=== PATIENT | male | born 1965 | race Caucasian/White ===

== ENCOUNTER 2017-07-16 04:35 | Emergency (ER) | payer OTHER ==
[~2017-07-16] VITALS: Ht 167.6 cm; Wt 77.6 kg
[2017-07-16 04:39] VITALS: BP 122/63
--- NOTE | 2017-07-16 04:45 | NUR ---
Dr. Pratt evaluating patient at bedside.
--- NOTE | 2017-07-16 04:45 | NUR ---
PATIENT IS A 51 Y/O MALE WHO PRESENTS TO THE ED C/O HEADACHE X9 MONTHS. PT REPORTS, "I HAVE BEEN HAVING HEADACHES SINCE I RAN OUT OF MOTWIDIP." PT REPORTS 8/10 SHARP HEADACHE PAIN THAT RADIATES TO THE BODY. PT DENIES N/V/D, SOB AND CP. PT AAOX4, RR EVEN/UNLABORED, AMBULATED TO BED WITH STEADY GAIT. PT REPOSITIONED FOR COMFORT, BED IN LOWEST POSITION. ER MD DR. BAILEY NOTIFIED. WILL CONTINUE TO MONITOR.
--- NOTE | 2017-07-16 04:45 | NUR ---
PT TAKEN TO BED 8
[2017-07-16] MEDS ORDERED: KETOROLAC 60 MG/2 ML VIAL IM ONE (04:55)
[2017-07-16 05:20] VITALS: BP 127/65
== END 2017-07-16 05:20 | disposition home or self-care (01) ==
LOC: MED 04:35
DX: R51 Headache (principal); Z88.1 Allergy status to other antibiotic agents; E11.9 Type 2 diabetes mellitus without complications
CPT/HCPCS: 96372; 99283; J1885

== ENCOUNTER 2017-08-11 01:40 | Emergency (ER) | payer OTHER ==
[~2017-08-11] VITALS: Ht 175.3 cm; Wt 72.6 kg
[2017-08-11 01:48] VITALS: BP 126/74
[2017-08-11] MEDS ORDERED: KETOROLAC 60 MG/2 ML VIAL IM ONE (02:00)
[2017-08-11 02:24] VITALS: BP 126/74
== END 2017-08-11 02:24 | disposition home or self-care (01) ==
LOC: MED 01:40
DX: M25.562 Pain in left knee (principal); M25.561 Pain in right knee; R03.0 Elevated blood-pressure reading, without diagnosis of hypertension; E11.9 Type 2 diabetes mellitus without complications; Z88.1 Allergy status to other antibiotic agents; Z88.8 Allergy status to other drugs, medicaments and biological substances
CPT/HCPCS: 96372; 99283; J1885

== ENCOUNTER 2017-12-06 02:15 | Emergency (ER) | payer OTHER ==
[~2017-12-06] VITALS: Ht 175.3 cm; Wt 74.8 kg
[2017-12-06 02:26] VITALS: BP 150/56
--- NOTE | 2017-12-06 03:07 | NUR ---
PATIENT AMBULATED TO ER BED 2.
--- NOTE | 2017-12-06 03:09 | NUR ---
Pt presents to ED after falling to knees. He was seen at [facility] for medical assistance. Pt describes 05/13 and continued pain despite medical management x5 days ago. VSS. ER MD nguyen. Continue to monitor.
--- NOTE | 2017-12-06 03:27 | NUR ---
Note maxxone in EDM - 12/06/17 at 0337 by LEOBARDO Patient discharged with v/s stable. Written and verbal after care instructions given and explained to parent/guardian. Parent/Guardian verbalized understanding of instructions. Ambulatory with steady gait. All questions addressed prior to discharge. ID band removed. Parent/Guardian advised to follow up with PMD. Rx of Ofloxacin Steffanie Solution given. Parent/Guardian educated on indication of medication including possible reaction and side effects. Opportunity to ask questions provided and answered.
[2017-12-06] MEDS ORDERED: IBUPROFEN 800 MG TAB PO ONE (06:35)
[2017-12-06 06:53] VITALS: BP 150/56
== END 2017-12-06 06:53 | disposition home or self-care (01) ==
LOC: MED 02:15
DX: M25.561 Pain in right knee (principal); M25.562 Pain in left knee; Z59.0 Homelessness; E11.9 Type 2 diabetes mellitus without complications; Z88.1 Allergy status to other antibiotic agents
CPT/HCPCS: 99283

== ENCOUNTER 2018-03-11 01:00 | Emergency (ER) | payer OTHER ==
[~2018-03-11] VITALS: Ht 175.3 cm; Wt 74.8 kg
[2018-03-11 01:07] VITALS: BP 105/69
--- NOTE | 2018-03-11 01:09 | NUR ---
TO BED # 8 AMBULATORY, REPORT GIVEN TO LOLA HERNANDEZ.
--- NOTE | 2018-03-11 02:00 | NUR ---
PT C/O BL FOOT PAIN X2 WEEKS, SKIN TO AFFECTED AREA, WARM, DRY INTACT, NO REDNESS, BLEEDING, OR BRUISING NOTED. PT IS AMBULATORY , STEADY EVEN GAIT.
--- NOTE | 2018-03-11 02:01 | NUR ---
Dr. Lakhani evaluating patient
[2018-03-11] MEDS ORDERED: KETOROLAC 30 MG/ML VIAL IM ONE (02:10)
[2018-03-11 02:30] LABS: ANION GAP 10.7 (8-16); CARBON DIOXIDE 29.2 mmol/L (21-32); CREATININE 0.8 mg/dL (0.7-1.3); POTASSIUM 3.9 mmol/L (3.5-5.1)
[2018-03-11 03:28] VITALS: BP 110/60
== END 2018-03-11 03:08 | disposition home or self-care (01) ==
LOC: MED 01:00
DX: M79.1 Myalgia (principal); E11.9 Type 2 diabetes mellitus without complications; Z88.1 Allergy status to other antibiotic agents
CPT/HCPCS: 36415; 80048; 96372; 99283; J1885

== ENCOUNTER 2018-04-23 20:28 | Emergency (ER) | payer OTHER ==
[~2018-04-23] VITALS: Ht 175.3 cm; Wt 72.6 kg
[2018-04-23 20:31] VITALS: BP 155/85
--- NOTE | 2018-04-23 20:34 | NUR ---
TO LOBBY A/W BED, AMBULATORY, VSS , LONA NOTED
--- NOTE | 2018-04-23 20:59 | NUR ---
PATIENT AMBULATED TO ER BED 8
--- NOTE | 2018-04-23 21:00 | NUR ---
PATIENT PRESENTS TO ED WITH C/O BILAT LEG CELLULITIS X 1 YEAR .PT DENIES N/V/D; SKIN IS PINK/WARM/DRY; AAOX4 WITH EVEN AND STEADY GAIT; LUNGS CLEAR BL; HR EVEN AND REGULAR; PT DENIES ANY FEVER, CP, SOB, OR COUGH AT THIS TIME; PATIENT STATES PAIN OF 7/10 AT THIS TIME; VSS; PATIENT POSITIONED FOR COMFORT; HOB ELEVATED; BEDRAILS UP X2; BED DOWN. ER MD MADE AWARE OF PT STATUS.
--- NOTE | 2018-04-23 21:58 | NUR ---
Patient being evaluated by physician at bedside.
[2018-04-23] MEDS ORDERED: KETOROLAC 60 MG/2 ML VIAL IM ONE (22:10)
[2018-04-23] MEDS ORDERED: CLINDAMYCIN 600 MG/4 ML VIAL IM ONE (22:10)
--- NOTE | 2018-04-23 22:45 | NUR ---
Patient discharged with v/s stable. Written and verbal after care instructions given and explained. Patient alert, oriented and verbalized understanding of instructions. Ambulatory with steady gait. All questions addressed prior to discharge. ID band removed. Patient advised to follow up with PMD. Rx of CLEOCIN 300MG AND MOTRIN 800MG given. Patient educated on indication of medication including possible reaction and side effects. Opportunity to ask questions provided and answered.
[2018-04-23 22:46] VITALS: BP 142/79
== END 2018-04-23 22:45 | disposition home or self-care (01) ==
LOC: MED 20:28
DX: L03.116 Cellulitis of left lower limb (principal); E11.9 Type 2 diabetes mellitus without complications; Z88.1 Allergy status to other antibiotic agents
CPT/HCPCS: 96372; 99284; J1885; J3490

== ENCOUNTER 2018-05-04 21:35 | Inpatient (IN) | payer OTHER ==
[~2018-05-04] VITALS: Ht 177.8 cm; Wt 84.8 kg
--- NOTE | 2018-05-04 21:35 | NUR ---
PATIENT PRESENTS TO ED BIBA D/T LEG PAIN AND NASAL CONGESTION. EMS STATES WHILE EN ROUTE PATIENT STOPPED RESPONDING AND GASPING FOR AIR WHILE FLAILING AND ACTING RESTLESS. PATIENT IS DIAPHORETIC AT THIS TIME, NON PITTING EDEMA IN LOWER EXTREMITIES, ABDOMINAL DISTENTION NOTED, PATIENT PURPLE IN COLOR AT THIS TIME, EMS BAGGING AT BEDSIDE RT NOTIFIED, PATIENT IS NON RESPONSIVE, AT THIS TIME GCS 7. PATIENT HAS BLUE-PURPLE DISCOLORATION ON COLLAR BONE. ER MD BAILEY AT BEDSIDE AT THIS TIME. PATIENT PLACED ON BEDSIDE MONITOR AT THIS TIME. SAFETY MEASURES ENSURED. WILL CONTINUE TO MONITOR PATIENT.
--- NOTE | 2018-05-04 21:45 | NUR ---
PATIENT PLACED ON BIPAP AT THIS TIME
[2018-05-04] MEDS ORDERED: NACL 0.9% 1,000 ML IV SCH (21:46)
[2018-05-04 21:50] VITALS: BP 165/135
[2018-05-04] MEDS ORDERED: LEVOFLOXACIN 750 MG/D5W PREMIX 150 ML IV ONE (21:50)
[2018-05-04] MEDS ORDERED: LORazepam 2 MG/ML VIAL IVP ONE ×2 (21:50→23:35)
[2018-05-04 22:00] LABS: BASOPHILS # (AUTO) 0.1 K/uL (0.00-0.22); BASOPHILS % (AUTO) 0.4 % (0.0-2.0); HEMATOCRIT 38.1 % (36-52); HEMOGLOBIN 12.1 g/dL (12.0-18.0); LYMPHOCYTES # (AUTO) 7.9 K/uL (2.0-11.5); LYMPHOCYTES % (AUTO) 33.6 % (20.5-51.1); MEAN CORPUSCULAR HEMOGLOBIN 32 pg (27-31); MEAN CORPUSCULAR HGB CONC 32 g/dL (33-37); MONOCYTES # (AUTO) 3.2 K/uL (0.8-1.0); MONOCYTES % (AUTO) 13.8 % (1.7-9.3); NEUTROPHILS # (AUTO) 12.2 K/uL (1.8-7.7); NEUTROPHILS % (AUTO) 52.2 % (42.2-75.2); RED BLOOD CELL COUNT(AUTO) 3.85 MIL/uL (4.20-6.10); RED CELL DISTRIBUTION WIDTH 13.4 % (11.6-13.7)
--- NOTE | 2018-05-04 22:01 | NUR ---
BP 226/118, HR 123, O2 70 BIPAP, RR 24 ER MD AT BEDSIDE, RT AT BEDSIDE, CHARGE NURSE AT BEDSIDE AT THIS TIME
[2018-05-04] MEDS ORDERED: methylPREDNISolone SS 125 MG/2 ML VIAL ONE (22:02)
[2018-05-04] MEDS ORDERED: diphenhydrAMINE 50 MG/ML VIAL ONE (22:02)
--- NOTE | 2018-05-04 22:03 | NUR ---
XRAY AT BEDSIDE
--- NOTE | 2018-05-04 22:10 | NUR ---
PATIENT IS RESPONSIVE AT THIS TIME, PATIENT IS A&OX4, PATIENT IS ALERT AND APPROPRIATE AT THIS TIME FOLLOWING COMMANDS; PERRLA; ER MD GONZALO PASCAL WILL CONTINUE TO MONITOR.
[2018-05-04] MEDS ORDERED: ETOMIDATE 20 MG/10 ML VIAL IVP ONE ×2 (22:20→23:15)
[2018-05-04] MEDS ORDERED: SUCCINYLCHOLINE CHLORIDE 200 MG/10 ML VIAL IVP ONE ×2 (22:21→23:15)
[2018-05-04 22:31] LABS: PROTHROMBIN TIME 11.5 secs (10.8-13.4)
[2018-05-04 22:34] LABS: ANION GAP 20.6 (8-16); CARBON DIOXIDE 21.6 mmol/L (21-32); POTASSIUM 5.2 mmol/L (3.5-5.1)
[2018-05-04 22:35] LABS: CREATININE 1.2 mg/dL (0.7-1.3)
[2018-05-04 22:36] LABS: ALBUMIN 2.6 g/dL (3.4-5.0); TOTAL BILIRUBIN 0.3 mg/dL (0.0-1.0)
[2018-05-04 22:44] LABS: PLATELET COUNT (AUTO) 606 K/uL (140-450); WHITE BLOOD COUNT (AUTO) 23.4 K/uL (4.8-10.8)
--- NOTE | 2018-05-04 22:49 | NUR ---
Note undone in EDM - 05/04/18 at 2250 by KURTIS PATIENT PRESENTS TO ED BIBA D/T LEG PAIN AND NASAL CONGESTION. EMS STATES WHILE EN ROUTE PATIENT STOPPED RESPONDING AND GASPING FOR AIR WHILE FLAILING AND ACTING RESTLESS. PATIENT IS DIAPHORETIC AT THIS TIME, NON PITTING EDEMA IN LOWER EXTREMITIES, ABDOMINAL DISTENTION NOTED, PATIENT PURPLE IN COLOR AT THIS TIME, EMS BAGGING AT BEDSIDE RT NOTIFIED, PATIENT IS NON RESPONSIVE, AT THIS TIME GCS 7. PATIENT HAS BLUE-PURPLE DISCOLORATION ON COLLAR BONE. ER MD BAILEY AT BEDSIDE AT THIS TIME. PATIENT PLACED ON BEDSIDE MONITOR AT THIS TIME. SAFETY MEASURES ENSURED. WILL CONTINUE TO MONITOR PATIENT.
--- NOTE | 2018-05-04 22:55 | NUR ---
RT CALLED; PATIENT O2 SAT DIPS INTO 70% ON BI PAP; DR BAILEY NOTIFIED
[2018-05-04 22:57] LABS: APPEARANCE,URINE CLEAR (CLEAR); BILIRUBIN,URINE NEGATIVE (NEGATIVE); BLOOD, URINE 2+ (NEGATIVE); COLOR,URINE YELLOW (YELLOW); LEUKOCYTE ESTERASE ,URINE NEGATIVE (NEGATIVE); NITRITE, URINE NEGATIVE (NEGATIVE); PH,URINE 7.5 (5.0-9.0); UGLUCOSE NEGATIVE (NEGATIVE)
--- NOTE | 2018-05-04 23:10 | NUR ---
AND KATHLEEN AT BEDSIDE WITH PATIENT. INTUBATED BY DR. BAILEY WITH 8.0 ETT AT 24CM AT LIP. BS-BILATERAL, ETCO2 WAS POSITIVE FOR GAS EXCHANGE,UNABLE TO GET SAO2 AT THIS TIME. X-RAY WAS ORDER SUCTIONED LARGE AMOUNTS OF FROTHY SECRETIONS
--- NOTE | 2018-05-04 23:10 | NUR ---
PATIENT INTUBATED BY DR. BAILEY. PATIENT TOLERATED WELL. PATIENT RESTING AT THIS TIME. ETOMIDATE 20MG GIVEN, SUCCINYLCHOLINE 100MG GIVEN. RT RT RENAN GRAHAM, CHARGE NURSE DR LYNN BARNETT AT BEDSIDE AT THIS TIME
[2018-05-04 23:19] LABS: RBC,URINE 11-20 (MOD) /HPF (0-5); WBC,URINE 0-5 (RARE) /HPF (0-5)
[2018-05-04 23:20] VITALS: BP 179/92
--- NOTE | 2018-05-04 23:28 | NUR ---
VILLEGAS CATHETER IN PLACE PT TOLERATED WELL
[2018-05-05] VITALS (80 sets, daily range): BP systolic 87–163; BP diastolic 47–85
[2018-05-05] MEDS ORDERED: ATROPINE 1 MG/10 ML SYR IVP ONE (00:11)
--- NOTE | 2018-05-05 00:15 | NUR ---
WENT WITH PT TO CT , PLACED PT ON THE VENT, NO INCIDENTS NOTED, COME BACK WITH THE PT AT 0056 , PLACED BACK AGAIN TO THE VENT.VENT CK DONE, NO DISTRESS NOTED, TALK WITH DR BAILEY AND INCREASED PEEP TO 10 AND I CAN SEE THE IMPROVMENT, FROM SAT 49%, NOW SAT IS 72%. CONTINUE TO MONITOR PT.
--- NOTE | 2018-05-05 01:00 | NUR ---
PATIENT BACK FROM CT
[2018-05-05] MEDS ORDERED: PROPOFOL 1000 MG/100 ML PREMIX 100 ML IV ONE ×3 (01:05→07:09)
[2018-05-05] MEDS ORDERED: LORazepam 2 MG/ML VIAL IVP ONE (01:05)
[2018-05-05] MEDS ORDERED: LORazepam 50 MG in NACL 0.9% 25 ML IV PRN (01:05)
[2018-05-05] MEDS ORDERED: PROPOFOL 200 MG/20 ML VIAL IV ONE (01:10)
[2018-05-05] MEDS ORDERED: FUROSEMIDE 100 MG/10 ML VIAL IVP ONE (01:10)
--- NOTE | 2018-05-05 01:34 | NUR ---
PATIENT PLACED ON PROPOFOL DRIP PER MD. PATIENT TRYING TO PULL OUT INTUBATION AT THIS TIME.
--- NOTE | 2018-05-05 02:14 | NUR ---
PATIENT RESTLESS AT THIS TIME PROPOFOL INCREASED 15MCG/KG/MIN.
--- NOTE | 2018-05-05 02:20 | NUR ---
PER MITCH FROM ADMITTING, ALFONZO FROM [employer] STATED THAT PATIENT WOULD BE ABLE TO BE ADMITTED TO [facility]
--- NOTE | 2018-05-05 02:37 | NUR ---
CHANDLER ADAIR CALLED AT THIS TIME. SPOKE TO DR DAVON FLORES TO CALL BACK
--- NOTE | 2018-05-05 03:37 | NUR ---
SPOKE TO SANDRA FROM [facility] REQUESTING ANOTHER PAGE TO THE DR HEALTH AND PHYSICAL EDUCATION PROFESSOR. AWAITING CALL BACK FROM AT THIS TIME.
--- NOTE | 2018-05-05 04:39 | NUR ---
CALLED [facility] AFTER HOURS TO PAGE DR. MAYS. WAITING FOR CALL BACK AT THIS TIME
--- NOTE | 2018-05-05 05:16 | NUR ---
Wes donahue in ED - 05/05/18 at 0520 by MEDSV SPOKE TO LAUREL FROM [facility]; NO PLACEMENT AVAILABLE AT THIS TIME. MADE AWARE
--- NOTE | 2018-05-05 05:17 | NUR ---
Wes donahue in ED - 05/05/[address] BAILEY REQUESTING PT TO BE ADMISSION TO THE HOSPITAL AT THIS TIME. PER MITCH FROM ADMITTING, PT TO BE ADMITTED TO [facility] NEEDLE LOOM TENDER.
--- NOTE | 2018-05-05 05:39 | NUR ---
PT TO BE ADMITTED UNDER DR BERNARDO
[2018-05-05] MEDS ORDERED: VANCOMYCIN PER PHARMACY MC PRN (05:45)
[2018-05-05] MEDS ORDERED: DOCUSATE SODIUM 250 MG GELCAP PO PRN (05:50)
[2018-05-05] MEDS ORDERED: ZOLPIDEM 5 MG TAB PO PRN (05:50)
[2018-05-05] MEDS ORDERED: LORazepam 2 MG/ML VIAL IVP PRN (05:50)
[2018-05-05] MEDS ORDERED: MORPHINE SULFATE 2 MG/ML SYR IVP PRN (05:50)
[2018-05-05] MEDS ORDERED: POTASSIUM CHLORIDE 10 MEQ TABER PO PRN (05:50)
[2018-05-05] MEDS ORDERED: guaiFENesin DM 200/20 MG-10 ML 10 ML UDC PO PRN (05:50)
[2018-05-05] MEDS ORDERED: DEXTROSE 50% 50 ML SYR IVP PRN (05:50)
[2018-05-05] MEDS ORDERED: ONDANSETRON 4 MG/2 ML VIAL IVP PRN (05:50)
[2018-05-05] MEDS ORDERED: diphenhydrAMINE 50 MG/ML VIAL IVP PRN (05:50)
[2018-05-05] MEDS ORDERED: ALUMINUM HYD/MAG/SIMETHICONE 30 ML UDC PO PRN (05:50)
[2018-05-05] MEDS ORDERED: ACETAMINOPHEN 650 MG SUPP RC PRN (05:50)
[2018-05-05] MEDS ORDERED: MAGNESIUM OXIDE 400 MG TAB PO PRN (05:50)
[2018-05-05] MEDS ORDERED: SODIUM PHOSPHATE 118 ML ENEM RC PRN (05:50)
[2018-05-05] MEDS ORDERED: MAG SULF 2000 MG/WATER PREMIX 50 ML IV PRN (05:50)
[2018-05-05] MEDS ORDERED: HYDROcodone/APAP 5/325 MG 1 TAB TAB PO PRN ×2 (05:50)
[2018-05-05] MEDS ORDERED: BISACODYL 10 MG SUPP RC PRN (05:50)
--- NOTE | 2018-05-05 05:50 | NUR ---
PATIENT TRANSFERRED FROM ER TO ICU BED 5, VIA 100% AMBU AND PLACED BACK ON CURRENT VENTILATOR SETTING AC-20, VT-600ML, FIO2-100% PEEP+10, SAO2-98% RR-39BPM CHANGED CRYSTAL AND ELBA.
[2018-05-05] MEDS ORDERED: PIPERACILLIN/TAZOBACTAM 3.375 GM in DEXTROSE 5% 50 ML IV SCH (06:00)
--- NOTE | 2018-05-05 06:00 | NUR ---
Pt report given to YUDI HERNANDEZ AND MAYANK HERNANDEZ. Transfer of care at this time.
--- NOTE | 2018-05-05 06:00 | NUR ---
RECEIVED PT FROM ED NURSE TRANSPORT, RT @ BEDSIDE.
--- NOTE | 2018-05-05 06:05 | NUR ---
PT ASLEEP, EYES CLOSED, ABLE TO FOLLOW SIMPLE COMMANDS. MOVING UPPER AND LOWER EXTREMITIES. PT INTUBATED 8.0 ETT TO VENT 24 CM @ LIP. VENT SETTINGS 600 TV, R 20 PEEP 10 100% FIO2. RHONCHI THROUGHOUT. YELLOW THICK SECRETIONS SUCTIONED OUT. PT TACHYPNEIC 30-40S RR. S1 S2 SINUS TACH 100S NOTED. + 3 PITTING EDEMA TO BLE. ABD SOFT NON DISTENDED. HYPOACTIVE BOWEL SOUNDS. VILLEGAS CATH CLEAR YELLOW URINE. SKIN NON INTACT; L WOUND TO CALF, BLANCHABLE REDNESS TO BUTTOCKS AREA. IV TO L AC 20G AND R AC 22 G. WILL CONTINUE TO OBSERVE.
--- NOTE | 2018-05-05 06:25 | NUR ---
PT CONTINUES TO BE TACHYPNEIC RR 40S; PROPOFOL INCREASED FROM 25 MCG TO 30 MCG AND IS STILL RESTLESS, NOW PROPOFOL IS @ 35 MCG/KG/MIN. PT HAS RASS -2 WILL CONTINUE TO OBSERVE.
[2018-05-05] MEDS: BLOOD GLUCOSE MONITORING 1 DEV DEV FS SCH ×4 (06:26→20:00)
[2018-05-05] MEDS ORDERED: PIPERACILLIN/TAZOBACTAM 3.375 GM VIAL IV ONE (06:35)
[2018-05-05] MEDS: NACL 0.9% 1,000 ML IV SCH ×2 (06:47→21:28)
[2018-05-05] MEDS ORDERED: PROPOFOL 1000 MG/100 ML PREMIX 100 ML IV PRN (06:50)
--- NOTE | 2018-05-05 06:55 | NUR ---
SPOKE WITH DR BARTHOLOMEW FOR ORDERS. WILL CONTINUE TO OBSERVE
--- NOTE | 2018-05-05 07:13 | NUR ---
RCV'D PT ON MECHANICAL VENTILATION INTUBATED WITH 8.0 ETT AT 24 CM. VENT IS CONNECTED TO RED OUTLET. ALARMS AUDIBLE. AMBU BAG AT BEDSIDE. PT IS ASLEEP COMFORTABLY. NO SOB OR DISTRESS NOTED. CLEAR BREATH SOUNDS. DECREASED FIO2 TO 80%. WILL CONTINUE TO MONITOR.
--- NOTE | 2018-05-05 07:20 | NUR ---
REPORT RECEIVED FROM NIGHT NURSEYUDI. PT SEDATED ON 35 MCG OF PROPOFOL. NO EYE OPENING BUT GRIMACING TO PAINFUL STIMULI. PT SKIN WARM AND DRY. MILD EDEMA NOTED IN BUE, PITTING EDEMA IN BLE. LUNG SOUNDS CLEAR ON LEFT SIDE, SLIGHTLY DIMINISHED ON RIGHT SIDE. S1S2 HEARD. ACTIVE BOWEL SOUNDS. WOUND ON MEDIAL LOWER LEFT CALF OPEN SKIN PURULENT DRAINAGE, COVERED. SMALL WOUND ON LATERAL LOWER LEFT LEG OPEN MINIMAL CLEAR DRAINAGE COVERED. IVS IN LAC/RAC FLUSHED BOTH PATENT AND ASYMPTOMATIC. WILL CONTINUE TO MONITOR PATIENT. Addendum: 05/05/18 at 825 by Jewels Mc RN ETT TO VENT; SIZE 8; 24 AT TEETH VENT SETTINGS: FiO2 80% PEEP 10 RATE 20 TV 600 Addendum: 05/05/18 at 826 by Jewels Mc RN VILLEGAS CATH IN PLACE. PLACE 05/04/18 IN ED
--- NOTE | 2018-05-05 07:26 | NUR ---
REPORT GIVEN TO AM NURSE FOR CONTINUITY OF CARE
[2018-05-05] MEDS: PROPOFOL 1000 MG/100 ML PREMIX 100 ML IV PRN ×4 (07:29→21:59)
--- NOTE | 2018-05-05 08:09 | NUR ---
ABG DONE WITH NO INCIDENT.
--- NOTE | 2018-05-05 08:42 | NUR ---
Paged and received call back from Dr. Palencia. Ordered CBC, CMP, LACTIC ACID STAT. NG tube placement, KUB and Dietary consult. Will follow up on order.
[2018-05-05] MEDS: PANTOPRAZOLE 40 MG INJ VIAL IVP SCH (09:00)
[2018-05-05] MEDS ORDERED: VANCOMYCIN 1GM/DEXT 5% PREMIX 200 ML IV SCH (09:00)
[2018-05-05] MEDS ORDERED: VANCOMYCIN HCL 1,500 MG in DEXTROSE 5% 250 ML IV SCH (09:00)
--- NOTE | 2018-05-05 09:20 | NUR ---
NG TUBE PLACED. NO COMPLICATIONS PT TOLERATED WELL. WILL CONTINUE TO MONITOR. XRAY CALLED TO VERIFY PLACEMENT
--- NOTE | 2018-05-05 09:36 | NUR ---
Pt. noted with elevated body temperature 101.2. Removed extra clothes. Pt. on continuous cold sponging. Waiting for ng tube placement verification by x-ray to administer medication. Dr. Palencia made aware about elevated body temperature.
--- NOTE | 2018-05-05 09:43 | NUR ---
CALLED PTS FATHER ABIODUN JACOBSEN, AT [phone], AND LEFT A MESSAGE WITH HIM EXPLAINING THAT HIS SON WAS HERE IN THE ICU. LEFT A CALL BACK NUMBER. WILL WAIT TO HEAR BACK.
[2018-05-05 10:00] LABS: BASOPHILS # (AUTO) 0.1 K/uL (0.00-0.22); BASOPHILS % (AUTO) 0.5 % (0.0-2.0); HEMATOCRIT 35.3 % (36-52); HEMOGLOBIN 11.7 g/dL (12.0-18.0); LYMPHOCYTES % (AUTO) 9.5 % (20.5-51.1); MEAN CORPUSCULAR HEMOGLOBIN 31 pg (27-31); MEAN CORPUSCULAR HGB CONC 33 g/dL (33-37); MEAN CORPUSCULAR VOLUME 94.2 fL (80-94); MONOCYTES # (AUTO) 0.5 K/uL (0.8-1.0); NEUTROPHILS # (AUTO) 9.1 K/uL (1.8-7.7); PLATELET COUNT (AUTO) 500 K/uL (140-450); RED BLOOD CELL COUNT(AUTO) 3.75 MIL/uL (4.20-6.10); RED CELL DISTRIBUTION WIDTH 13.2 % (11.6-13.7); WHITE BLOOD COUNT (AUTO) 10.8 K/uL (4.8-10.8)
--- NOTE | 2018-05-05 10:00 | NUR ---
PT HAS A FEVER OF 101.2. WILL GIVE TYLENOL 650MG ORDERED. WILL REASSESS IN 30 MINUTES
--- NOTE | 2018-05-05 10:08 | NUR ---
PT SPO2 DROPPED TO 80. CALLED RESPIRATORY. DELIVERED 100% FI02 FOR TWO MINUTES. STATS STILL IN LOW 80S PAGED RESPIRATORY AGAIN THEY SAID THEY WOULD COME. CHANGED PULSE OX TO EAR LOBE. SPO2 UP TO 93. Addendum: 05/05/18 at 1010 by Jewels Mc RN WILL CONTINUE TO MONITOR
--- NOTE | 2018-05-05 10:09 | NUR ---
DECERASED VT PER DR SALOMON'S ORDER TO 400. DECREASED FIO2 TO 60%. WILL CONTINUE TO MONITOR.
--- NOTE | 2018-05-05 10:23 | NUR ---
PATIENT HAS BEEN SCREENED AND CATEGORIZED HIGH NUTRITION RISK. PATIENT WILL BE SEEN WITHIN 1-2 DAYS OF ADMISSION. 05/05/18 05/06/[address]
[2018-05-05] MEDS: ACETAMINOPHEN 325 MG TAB PO PRN (10:27)
[2018-05-05 10:32] LABS: ANION GAP 13.2 (8-16); CARBON DIOXIDE 25.7 mmol/L (21-32); CREATININE 1.5 mg/dL (0.7-1.3)
[2018-05-05 10:42] LABS: POTASSIUM 6.9 mmol/L (3.5-5.1)
--- NOTE | 2018-05-05 10:45 | NUR ---
FATHER MADE AWARE ABOUT ADMITTING PAPER NEEDS TO BE SIGN. WHENEVER HE IS ABLE TO COME. FATHER SAID HE UNDERSTOOD.
--- NOTE | 2018-05-05 10:45 | NUR ---
CALLED PATIENT'S FATHER ABIODUN JACOBSEN AT [phone], DIVEHI SPEAKING ONLY. RESISTANCE MACHINE WELDER SETTER MAXINE #[id number] TRANSLATED. PATIENT'S FATHER CLAIMED THAT HE HAS NOT SEEN THE PATIENT FOR 5 MOS. HE ALSO STATED THAT IF IT IS REALLY NEEDED, WE HAVE TO DO WHAT WE GOT TO DO. ALL QUESTIONS ANSWERED. CONSENT SIGNED AND PLACED IN THE CHART.
--- NOTE | 2018-05-05 11:07 | NUR ---
PT FEVER DOWN TO 99.7 UPON REEVALUATION. WILL CONTINUE TO MONITOR.
--- NOTE | 2018-05-05 11:11 | NUR ---
INCREASED VT TO 500 PER MALACHI SIRRI ORDER. FIO2 AT 60% SPO2 94%. WILL CONTINUE TO MONITOR.
--- NOTE | 2018-05-05 11:16 | NUR ---
US TECH AT BEDSIDE.
--- NOTE | 2018-05-05 11:30 | NUR ---
SPOKE WITH DR PLATT REGARDING POTASSIUM 6.9, ORDERS RECEIVED: 1AMP BICARB IVP, CALCIUM CHLORIDE 1GM IVP, KAYEXALATE 30GM NG, D50 1 AMP IVP, INSULIN 10 UNITS IVP. WILL CARRY OUT ORDERS.
[2018-05-05] MEDS ORDERED: INSULIN REGULAR, HUMAN 100 UNIT/ML VIAL IVP SCH (11:50)
[2018-05-05] MEDS ORDERED: DEXTROSE 50% 50 ML SYR IVP SCH (11:50)
[2018-05-05] MEDS ORDERED: SODIUM POLYSTYRENE 15 GM/60 ML UDBTL PO SCH (12:01)
[2018-05-05] MEDS ORDERED: SODIUM BICARBONATE 8.4% PFS 50 MEQ/50 ML SYR IVP SCH (12:06)
[2018-05-05] MEDS ORDERED: CALCIUM CHLORIDE 10% 100 MG/ML SYR IVP SCH (12:06)
[2018-05-05] MEDS: PIPER/TAZO 3.375GM/D5W PREMIX 50 ML IV SCH ×3 (12:22→23:00)
--- NOTE | 2018-05-05 12:50 | NUR ---
ADMINISTERED MEDICATION ORDERED. TOLERATING WELL. WILL CONTINUE TO MONITOR.
--- NOTE | 2018-05-05 13:30 | NUR ---
DR. ESCOBEDO AT BEDSIDE, SEEN AND EXAMINED PATIENT. WILL FOLLOW UP WITH ORDERS.
[2018-05-05] MEDS ORDERED: ALBUMIN HUMAN 25% 100 ML IV SCH (14:00)
[2018-05-05] MEDS ORDERED: SKINTEGRITY HYDROGEL TP PRN (14:15)
--- NOTE | 2018-05-05 14:45 | NUR ---
THORACENTESIS PERFORMED BY DR. SANCHEZ, ASSISTED NEEDED. 12.5 LTR FLUID TAKEN OUT. PT TOLERATING WELL. NO CHANGE IN CONDITION. SAMPLE TAKEN TO THE LAB.
--- NOTE | 2018-05-05 14:57 | NUR ---
CALL PLACED TO [facility] AND SPOKE WITH ALFONZO CEJA AND PROVIDED VERBAL UPDATE ON PATIENTS CONDITION AND WILL FAX OVER CLINICAL REVIEW. FAX [phone] AND PHONE [phone] EXT [phone]
--- NOTE | 2018-05-05 15:00 | NUR ---
TEMPERATURE DECREASED TO 98.8.
--- NOTE | 2018-05-05 15:30 | NUR ---
DECREASED FIO2 TO 40% SPO2 96%. WILL CONTINUE TO MONITOR.
--- NOTE | 2018-05-05 15:30 | NUR ---
Global Safety Officer Note: Patient is currently intubated. I called and spoke with patient's father Puneet Arreguin , Puneet speaks Singaporean. Per Puneet, he has not had any contact with patient within last 5 months. He stated he does not know where patient has residing at or anything about him. Patient was living with Puneet about 1 year ago, lived with him for 5 years. Puneet reported patient would lie to him just about everything, he would leave the house and come back on and off. He stated patient has either schizophrenia or bipolar. He reported when patient use to live with him patient would not take his psychiatric medication. He informed me patient receives SSDI and use to see a psychiatrist in [place], [place], he does not recall name of psychiatrist, stated psychiatrist's office is located between [facility] and [facility]. He reported patient has been at multiple hospitals, including [facility] and [facility].
--- NOTE | 2018-05-05 15:36 | NUR ---
DR. ESCOBEDO CALLED BACK AND MADE AWARE OF POTASSIUM LEVEL OF 5.2. CONTINUE CURRENT TREATMENT AND NO DIALYSIS FOR NOW PER DR. ESCOBEDO.
--- NOTE | 2018-05-05 15:41 | NUR ---
DR PLATT PAGED REGARDING RD'S RECOMMENDATION. AWAITING FOR CALL BACK.
--- NOTE | 2018-05-05 15:45 | NUR ---
RESTING IN BED COMFORTABLY. TEMP 98 DEGREE F. CONTINUE ON PROPOFOL DRIP. RASS -3. NO CHANGES IN CONDITION. CONTINUE ON BEDSIDE MONITORING.
[2018-05-05] MEDS: SKINTEGRITY HYDROGEL TP SCH (15:51)
--- NOTE | 2018-05-05 16:01 | NUR ---
Clinical review faxed to [facility]. [phone]
--- NOTE | 2018-05-05 16:01 | NUR ---
05/05/18 RD INITIAL ASSESSMENT COMPLETED PLEASE REFER TO NUTRITION ASSESSMENT UNDER CARE ACTIVITY FOR ESTIMATED NUTRITIONAL NEEDS. 1. RECOMMEND TF VITAL AF 1.2 @ GOAL RATE 70ML/H WITH 170 ML H2O FLUSH Q4H TOLERATED -NUTRITION SUPPORT PROVIDES 2016 KCAL (98% ESTIMATED KCAL NEEDS), 126GM PRO (100% ESTIMATED PROTEIN NEEDS), AND 2042 ML FLUID 2. RECOMMEND 1 PKT ANGIE QD FOR WOUND HEALING 3. FOLLOW-UP DIABETES NUTRITION EDUCATION WHEN APPROPRIATE 4. RD TO FOLLOW-UP 2-3 DAYS, HIGH RISK RABIA GIBSON RD
[2018-05-05 16:37] LABS: ANION GAP 13.4 (8-16); CREATININE 1.7 mg/dL (0.7-1.3); POTASSIUM 5.4 mmol/L (3.5-5.1)
[2018-05-05 16:40] LABS: GLUCOSE,BODY FLUID 118 mg/dL; SPECIMENTYPE,BODY FLUID PLEURAL
[2018-05-05 17:31] LABS: APPEARANCE,UNSPUN,BODY FLUID HAZY (CLEAR)
[2018-05-05 17:33] LABS: APPEARANCE,SPUN,BODY FLUID CLEAR (CLEAR); COLOR,BODY FLUID LT YELLOW (LT YELLOW); TOTAL VOLUME,BODY FLUID 1200 mL; WBC, BODY FLUID 1097.5 /cu. mm.
--- NOTE | 2018-05-05 17:51 | NUR ---
TRIED TO OBTAIN SPUTUM SAMPLE DURING SHIFT BUT PT IS DRY. CLEAR BREATH SOUNDS. WILL PASS ON TO NEXT SHIFT.
[2018-05-05 18:27] LABS: RBC, BODY FLUID 130 /cu. mm.
[2018-05-05 18:28] LABS: POLYNUCLEAR, BODY FLUID 85 %
--- NOTE | 2018-05-05 18:44 | NUR ---
DR. MCARTHUR CALLED BACK MADE OF RD'S RECOMMENDATION TO START TUBE FEEDING WITH VITAL AF, WILL START AT 10ML AND GOAL IS 70 ML WITH 170 ML WATER FLUSH Q4H. ORDERS TRANSCRIBED AND CARRIED OUT.
--- NOTE | 2018-05-05 19:22 | NUR ---
GAVE REPORT TO NIGHT NURSE. PT STABLE.
--- NOTE | 2018-05-05 20:23 | NUR ---
RECEIVED REPORT FROM AM NURSE. PT AFEBRILE. SEDATED. UNABLE TO FOLLOW COMMANDS. ON PROPOFOL DRIP 25MCG/KG/MIN. IV SITE LAC 20G. PATENT INTACT. IV SITE RAC 22G PATENT, INTACT. VENT SETTINGS FIO2 40, VT 500 RATE 20, PEEP 10. SR ON MONITOR. ABD SOFT NONTENDER. NGT TO RIGHT NARE. ON TUBE FEEDING VITAL AF 10 ML/HR WITH 170 ML H20 Q6H. F/C INTACT. URINE CLEAR YELLOW INTACT. BED IN LOWEST POSITION. HOB 30. CALL LIGHT WITHIN REACH WILL CONTINUE TO MONITOR
--- NOTE | 2018-05-05 21:04 | NUR ---
DR. MONTOYA AT BEDSIDE TO EXAMINE PATIENT. NO NEED TO INSERT CENTRAL LINE AT THIS TIME. WILL CONTINUE TO FOLLOW UP ANY ADDITIONAL ORDERS.
--- NOTE | 2018-05-05 22:05 | NUR ---
NO RESIDUAL FROM NGT NOTED. TOLERATING FEEDING WELL. INCREASED RATE TO 20ML/HR. WILL CONTINUE TO MONITOR
--- NOTE | 2018-05-05 23:00 | NUR ---
RT AT BEDSIDE. NO SIGNS OF ACUTE DISTRESS NOTED.
[2018-05-06] VITALS (105 sets, daily range): BP systolic 96–130; BP diastolic 50–88
--- NOTE | 2018-05-06 02:47 | NUR ---
NO RESIDUAL NOTED FROM NGT. FEEDING INCREASED BY 10ML/HR. CURRENTLY RUNNING FEED AT 30 ML/HR
--- NOTE | 2018-05-06 02:58 | NUR ---
RT AT BEDSIDE.
[2018-05-06] MEDS: PROPOFOL 1000 MG/100 ML PREMIX 100 ML IV PRN ×4 (03:35→20:52)
--- NOTE | 2018-05-06 04:30 | NUR ---
PROPOFOL DRIP TITRATED FROM 25MCG/KG/MIN TO 20MCG/KG/MIN. WILL CONTINUE TO MONITOR.
--- NOTE | 2018-05-06 04:45 | NUR ---
PROPOFOL DRIP INCREASED FROM 20MCG/KG/MIN TO 25MCG/KG/MIN TO MAINTAIN RASS SCORE -3. WILL CONTINUE TO MONITOR.
[2018-05-06] MEDS: PIPER/TAZO 3.375GM/D5W PREMIX 50 ML IV SCH ×4 (05:00→23:33)
[2018-05-06] MEDS: BLOOD GLUCOSE MONITORING 1 DEV DEV FS SCH ×4 (06:31→20:27)
[2018-05-06 06:32] LABS: BASOPHILS % (AUTO) 0.2 % (0.0-2.0); HEMATOCRIT 27.2 % (36-52); HEMOGLOBIN 9.2 g/dL (12.0-18.0); LYMPHOCYTES % (AUTO) 12.9 % (20.5-51.1); MEAN CORPUSCULAR HEMOGLOBIN 32 pg (27-31); MEAN CORPUSCULAR HGB CONC 34 g/dL (33-37); MONOCYTES # (AUTO) 0.6 K/uL (0.8-1.0); MONOCYTES % (AUTO) 8.3 % (1.7-9.3); NEUTROPHILS # (AUTO) 6.2 K/uL (1.8-7.7); NEUTROPHILS % (AUTO) 78.6 % (42.2-75.2); PLATELET COUNT (AUTO) 351 K/uL (140-450); RED CELL DISTRIBUTION WIDTH 13.1 % (11.6-13.7); WHITE BLOOD COUNT (AUTO) 7.8 K/uL (4.8-10.8)
--- NOTE | 2018-05-06 06:47 | NUR ---
RT AT BEDSIDE AT THIS TIME
--- NOTE | 2018-05-06 06:50 | NUR ---
RECEIVED INTUBATED PT WITH A 8.0 ETT SECURED @24 TEETH/GUMS ON VENT. SETTINGS AC 20, VT 500, PEEP 8 AND FIO2 35%. PT SUCTIONED OBTAINED SMALL AMOUNT OF THICK WHITE SECRETIONS,PT HAS ACTIVE GAG REFLEX. AIRWAY IS PATENT AND ETT IS SECURE WITH ANCHOR FAST DEVICE. BITE BLOCK IS PRESENT. PT IS NOT AWAKE AT THIS TIME. VENT IS PLUGGED INTO A RED OUTLET WITH ALARMS ON AND FUNCTIONING. WILL CONTINUE TO MONITOR.
[2018-05-06 06:51] LABS: ALBUMIN 1.8 g/dL (3.4-5.0); ANION GAP 12.7 (8-16); CARBON DIOXIDE 25.6 mmol/L (21-32); CREATININE 1.9 mg/dL (0.7-1.3); POTASSIUM 4.3 mmol/L (3.5-5.1); TOTAL BILIRUBIN 0.4 mg/dL (0.0-1.0)
[2018-05-06 06:54] LABS: MAGNESIUM 1.7 mg/dL (1.8-2.4); PHOSPHORUS 4.2 mg/dL (2.5-4.9)
--- NOTE | 2018-05-06 07:22 | NUR ---
ENDORSED CARE TO INCOMING SHIFT. PT IN STABLE CONDITION. NO SIGNS OF ACUTE DISTRESS. SIDE RAILS UP X 4. BED IN LOWEST POSITION
--- NOTE | 2018-05-06 07:48 | NUR ---
RECEIVED REPORT FROM CLINICAL PHARMACY TECHNICIAN NURSE, SOCORRO. PT YENNI SCORE -3, PROPOFOL RUNNING AT 25MCG. PT SKIN WARM AND DRY. PT PUPILS PINPOINT UNREACTIVE TO LIGHT. LUNG SOUNDS CLEAR SYMMETRICAL MOVEMENT, S1S2 HEARD SINUS RHYTHM ON MONITOR. ACTIVE BOWEL SOUNDS, NG TUBE IN PLACE ON RIGHT NARES VITAL AF RUNNING AT 50ML/HR. NO RESIDUAL NOTED. VILLEGAS CATH IN PLACE DRAINING WITH GRAVITY. WOUNDS ON LEFT LOWER LEG, BOTH DRESSINGS DRY AND INTACT. ETT TO VENT: FiO2 35% 500TV RATE 20 PEEP 8. IVS FLUSHED, PATENT AND ASYMPTOMATIC. WILL CLOSELY MONITOR
[2018-05-06] MEDS: PANTOPRAZOLE 40 MG INJ VIAL IVP SCH (08:10)
--- NOTE | 2018-05-06 09:00 | NUR ---
REASON FOR EVALUATION: LLE WOUNDS SKIN ASSESSMENT DONE WITH PRIMARY RN AT 9:00 AM WITH THIS 52 Y/O MALE PT ADMITTED FROM TO [facility] WITH INITIAL DX SOB. PAST MEDICAL HX INCLUDES HTN, CHF, DM AND TF. ALL ABOVE INFORMATION OBTAINED FROM ADMISSION H&P. LABS ARE WBC 7.8, H/H 9.2/27.2, GLUCOSE 120 AND ALBUMIN 1.8. PT IS AWAKE WHEN TURN. SKIN IS WARM AND DRY, BLE FEW HAIR GROWTH, NO EDEMA. DORSAL PEDAL PULSES PRESENT AND NORMAL. CAPILLARY REFILLED < 2 SEC. X 10 TOES[address] F/C IN PLACE WITH MODERATE AMOUNT OF CLEAR YELLOW URINE OUTPUT. PLAN OF CARE DISCUSSED WITH PRIMARY RN. INTEGUMENTARY: LEFT LOWER LEG SKIN ALTERATION WITH LARGEST TO MEDIAL AREA 1.5X1.5 X0.1 CM AND SMALLER TO ANTERIOR AREA 0.1X0.5, WOUND BEDS ARE PINK AND MOIST, NO ODOR, WOUND EDGE FLAT AND WELL DEFINED. RECOMMENDATIONS: -KEEP SKIN DRY AND CLEAN AT ALL TIMES, PLEASE CHECK Q2H AND PRN FOR INCONTINENCY OF BOWEL -CLEANSE LLE WOUNDS WITH NS. PAT DRY, APPLY HYDROGEL AND COVER WITH DRY DRESSING QD AND PRN IF SOILING. -OFFLOAD BILATERAL HEELS BY PLACING PILLOWS UNDER CALVES UNLESS OTHERWISE CONTRAINDICATED -PRESSURE REDISTRIBUTION SURFACE THERAPY -TURN AND REPOSITION Q2H, OFFLOAD SACRALCOCCYX AND BUTTOCKS BY TURNING RIGHT AND LEFT -CONTINUE TO FOLLOW RD RECOMMENDATIONS ALL ABOVE RECOMMENDATIONS DISCUSSED WITH PRIMARY RN. PLEASE CONTACT WOUND CARE NURSE FOR ANY QUESTION AND CHANGE OF WOUND CONDITION
--- NOTE | 2018-05-06 09:20 | NUR ---
DR MONTOYA AT BEDSIDE TO EVALUATE NEED FOR CENTRAL LINE PLACEMENT. CHECKED PATIENT AND GAVE NO INDICATION WHETHER OR NOT HE WOULD BE PLACING CENTRAL LINE AT THIS TIME. WILL FOLLOW UP
--- NOTE | 2018-05-06 09:30 | NUR ---
WOUND CARE NURSE AT BEDSIDE FOR EVALUATION OF LEFT LOWER LEG WOUNDS. NO CHANGES IN WOUND CARE. WILL CONTINUE PLAN OF CARE
--- NOTE | 2018-05-06 10:08 | NUR ---
ZOSYN [phone] 05/05/18 DOSE UNKNOWN IF GIVEN OR NOT.
--- NOTE | 2018-05-06 10:41 | NUR ---
DR MONTOYA RETURNED AND STATED THAT HE WOULD HOLD OFF ON THE CENTRAL LINE FOR NOW BECAUSE HE DID NOT SEE A NEED FOR IT. WILL FOLLOW UP
--- NOTE | 2018-05-06 10:57 | NUR ---
SEDATION VACATION STARTED. MONITORING PATIENT CLOSELY
[2018-05-06] MEDS ORDERED: VANCOMYCIN 750 MG in DEXTROSE 5% 250 ML IV SCH (11:00)
--- NOTE | 2018-05-06 11:05 | NUR ---
SEDATION VACATION FOR ABOUT 5 MINUTES. PT ALERT AND ABLE TO FOLLOW COMMANDS. PROPOFOL RESTARTED AT 25MCG/MIN DR PLATT AT BEDSIDE ASSESSED PT. WILL FOLLOW UP
--- NOTE | 2018-05-06 11:10 | NUR ---
FEEDING INCREASED FROM 50-60ML/HR PER ORDER. GOAL OF 70 WILL INCREASE IF PATIENT CONTINUES TO TOLERATE WELL.
[2018-05-06] MEDS ORDERED: PROBIOTIC SCREEN 1 EA MISC MC PRN (12:00)
--- NOTE | 2018-05-06 13:05 | NUR ---
FAMILY AT BEDSIDE. UPDATED ON CONDITION. WILL FOLLOW UP TO VERIFY THEY DO NOT HAVE ANY MORE QUESTIONS BEFORE THEY LEAVE.
[2018-05-06] MEDS: VANCOMYCIN 750 MG in DEXTROSE 5% 250 ML IV SCH (13:10)
--- NOTE | 2018-05-06 13:18 | NUR ---
PT REMAINS ON DOCUMENTED VENT SETTINGS TOLERATING WELL AT THIS TIME. FAMILY IS BEDSIDE. WILL CONTINUE TO MONITOR.
[2018-05-06] MEDS: SKINTEGRITY HYDROGEL TP SCH (13:24)
--- NOTE | 2018-05-06 14:45 | NUR ---
DR ESCOBEDO AT BEDSIDE. ORDERS GIVEN WILL BE CARRIED OUT. WILL FOLLOW UP
[2018-05-06] MEDS ORDERED: MAG SULF 2000 MG/WATER PREMIX 50 ML IV ONE (14:55)
--- NOTE | 2018-05-06 14:58 | NUR ---
CALLED PHARMACY REGARDING MAGNESIUM ORDER AND THEY SAID THEY WOULD SEND IT NOW.
[2018-05-06] MEDS: MAGNESIUM SULFATE 1GM in DEXTROSE 5% 100 ML PREMIX IV SCH ×2 (15:04→16:15)
[2018-05-06] MEDS: NACL 0.9% 1,000 ML IV SCH ×2 (16:45→22:58)
--- NOTE | 2018-05-06 17:38 | NUR ---
RT AT BEDSIDE. WILL FOLLOW UP.
--- NOTE | 2018-05-06 18:00 | NUR ---
SMALL BOWEL MOVEMENT; SMEAR.
--- NOTE | 2018-05-06 18:07 | NUR ---
PT REMAINS ON DOCUMENTED VENT SETTINGS. PT NOT IN ANY DISTRESS AT THIS TIME. ETT REMAINS SECURE WITH A PATENT AIRWAY. VENT ALARMS REMAIN ON AND FUNCTIONING.
--- NOTE | 2018-05-06 18:22 | NUR ---
LAB CALLED TO INFORM ABOUT POSITIVE WOUND CULTURE FINDINGS. STEP GROUP A IDENTIFIED IN WOUND CULTURE FORM LEFT LOWER LEG. DR NOTIFIED. WILL FOLLOW UP
--- NOTE | 2018-05-06 18:48 | NUR ---
NEW FEEDING TUBING HUNG. VITAL AF RUNNING AT 50MLS/HR WITH Q4H 170ML FLUSHES.
--- NOTE | 2018-05-06 19:08 | NUR ---
REPORT GIVEN TO NIGHT NURSEMARYSE. PT STABLE AND SEDATED.
--- NOTE | 2018-05-06 19:20 | NUR ---
RECEIVED REPORT FROM MORNING SHIFT [email or web address]. PATIENT SEDATED WITH PROPOFOL DRIP, RASS SCORE -3, PROPOFOL RUNNING AT 25MCG/KG/MIN. ETT TO VENT WITH SETTING AC, FIO2 35%, VT 500, RATE 20, PEEP 8 NOTED. NO ACUTE DISTRESS NOTED AT THIS TIME. RIGHT LUNG SOUND RHONCHI AND LEFT CLEAR, SYMMETRICAL MOVEMENT. S1 AND S2 HEARD SINUS RHYTHM ON MONITOR. ACTIVE BOWEL SOUNDS, NG TUBE IN PLACE ON RIGHT NARES, VITAL AF RUNNING AT 50ML/HR WITH H2O FLUSH 170ML Q4H. NO RESIDUAL NOTED. PERIPHERAL LINE TO RIGHT AC 22G AND LEFT AC 20G, INTACT AND PATENT. VILLEGAS CATH IN PLACE DRAINING CLEAR YELLOW COLORED URINE WITH GRAVITY. WOUNDS ON LEFT LOWER LEG, BOTH DRESSINGS DRY AND INTACT. HOB ELEVATED 30 DEGREE, BED IN LOW POSITION, CALL LIGHT WITHIN REACH, WILL CONTINUE TO MONITOR.
--- NOTE | 2018-05-06 20:30 | NUR ---
ADMINISTERED SCHEDULED MEDICATION ORDERED. BS CHECKED 129 NOTED. NO NEED INSULIN. PATIENT SEDATED WITH PROPOFOL DRIP. RASS -3 NOTED. FLACC 0 NOTED.
--- NOTE | 2018-05-06 23:35 | NUR ---
ADMINISTERED SCHEDULED ABX ORDERED, TOLERATED WELL. NO REACTION NOTED. PATIENT SEDATED WITH PROPOFOL DRIP. RASS -3 NOTED. NO ACUTE DISTRESS NOTED. NO RESIDUAL FROM NGT. WILL CONTINUE TO MONITOR.
[2018-05-07] VITALS (104 sets, daily range): BP systolic 107–155; BP diastolic 53–98
[2018-05-07] MEDS: VANCOMYCIN 750 MG in DEXTROSE 5% 250 ML IV SCH (00:19)
--- NOTE | 2018-05-07 00:30 | NUR ---
ADMINISTERED SCHEDULED ABX ORDERED, TOLERATED WELL. NO ACUTE DISTRESS NOTED. FLACC 0. PATIENT SEDATED WITH PROPOFOL DRIP. WILL CONTINUE TO MONITOR.
--- NOTE | 2018-05-07 02:30 | NUR ---
PATIENT SEDATED WITH PROPOFOL DRIP, RASS -3 NOTED. NO ACUTE DISTRESS NOTED. FLACC 0 NOTED.
[2018-05-07] MEDS: PROPOFOL 1000 MG/100 ML PREMIX 100 ML IV PRN ×4 (02:54→20:51)
--- NOTE | 2018-05-07 04:30 | NUR ---
PATIENT TOLERATED WELL WITH VENT, SEDATED. NO ACUTE DISTRESS NOTED. FLACC 0. NO FEVER. WILL CONTINUE TO MONITOR.
[2018-05-07 05:18] LABS: BASOPHILS % (AUTO) 0.3 % (0.0-2.0); HEMATOCRIT 24.8 % (36-52); HEMOGLOBIN 8.3 g/dL (12.0-18.0); LYMPHOCYTES # (AUTO) 1.2 K/uL (2.0-11.5); LYMPHOCYTES % (AUTO) 15.6 % (20.5-51.1); MEAN CORPUSCULAR HEMOGLOBIN 32 pg (27-31); MEAN CORPUSCULAR HGB CONC 34 g/dL (33-37); MONOCYTES # (AUTO) 0.5 K/uL (0.8-1.0); MONOCYTES % (AUTO) 6.6 % (1.7-9.3); NEUTROPHILS # (AUTO) 5.9 K/uL (1.8-7.7); NEUTROPHILS % (AUTO) 77.5 % (42.2-75.2); PLATELET COUNT (AUTO) 357 K/uL (140-450); RED BLOOD CELL COUNT(AUTO) 2.64 MIL/uL (4.20-6.10); RED CELL DISTRIBUTION WIDTH 13.4 % (11.6-13.7); WHITE BLOOD COUNT (AUTO) 7.6 K/uL (4.8-10.8)
[2018-05-07] MEDS: PIPER/TAZO 3.375GM/D5W PREMIX 50 ML IV SCH ×4 (05:51→23:50)
--- NOTE | 2018-05-07 06:00 | NUR ---
ADMINISTERED ABX ORDERED. PATIENT SEDATED WITH PROPOFOL DRIP, RASS -3. NO ACUTE DISTRESS NOTED. FLACC 0. NGT TO FEEDING, PLACEMENT CHECKED. NO RESIDUAL NOTED. WILL CONTINUE TO MONITOR.
--- NOTE | 2018-05-07 06:28 | NUR ---
RECEIVED PT ON CARESCAPE ON DOCUMENTED SETTINGS ALARMS ARE ON AND AUDIBLE PTS TRACH PORTEX 7 IS SECURE BS CLEAR PT IN HF ASLEEP VENT PLUGGED INTO RED OUTRE Addendum: 05/07/18 at 0634 by Nupur Ledesma RT OUTLET BMV HOB
--- NOTE | 2018-05-07 07:06 | NUR ---
RECEIVED BEDSIDE REPORT FROM HOOP RIVETING MACHINE OPERATOR RN FOR CONTINUITY OF CARE. PATIENT IS SEDATED WITH PROPOFOL AT 25MCG/KG/HR, ABLE TO FOLLOW SIMPLE COMMANDS. PATIENT SKIN IS WARM AND DRY, NOT INTACT, OPEN WOUNDS LLE, HE HAS PERIPHERAL IV SITE TO LEFT AC, 18 GAUGE, AND RIGHT AC 22 GAUGE. PATIENT IS ON ETT TO VENT, SETTINGS IS AC 20, FIO2 35, TV 500, PEEP 8. BREATHING IS EVEN AND UNLABORED, SB ON MONITOR. HE HAS NG TUBE IN PLACE WITH TUBE FEEDING AT 50 ML/HR WITH 150 H20 FLUSH Q4H. HE HAS VILLEGAS CATHETER IN PLACE TO CLEAR YELLOW URINE. HOB IS 30 DEGREES IN LOW POSITION. NO SIGNS OF DISTRESS NOTED, CALL LIGHT WITHIN REACH, SAFETY PRECAUTIONS IN PLACE. WILL CONTINUE TO MONITOR.
--- NOTE | 2018-05-07 07:10 | NUR ---
REPORT GIVEN TO MORNING SHIFT RN FOR CONTINUITY OF CARE.
[2018-05-07] MEDS: BLOOD GLUCOSE MONITORING 1 DEV DEV FS SCH ×4 (07:12→20:05)
--- NOTE | 2018-05-07 07:44 | NUR ---
PROVIDED ORAL CARE, PATIENT TOLERATED WELL. PATIENT WAS TURNED AND REPOSITIONED, HE HAS 1 SMALL BM. NO SIGNS OF DISTRESS NOTED AT THIS TIME. WILL CONTINUE TO MONITOR
--- NOTE | 2018-05-07 08:09 | NUR ---
TURNED OFF PROPOFOL FOR SEDATION VACATION, RT AT BEDSIDE. PATIENT WAS ABLE TO FOLLOW SIMPLE COMMANDS BY SQUEEZING HANDS AND OPENING EYES, VITAL SIGNS STABLE, NO SIGNS OF DISTRESS NOTED AT THIS TIME. WILL CONTINUE TO MONITOR.
[2018-05-07 08:14] LABS: CARBON DIOXIDE 26.7 mmol/L (21-32); CREATININE 1.3 mg/dL (0.7-1.3); POTASSIUM 3.7 mmol/L (3.5-5.1)
[2018-05-07 08:18] LABS: MAGNESIUM 2.4 mg/dL (1.8-2.4); PHOSPHORUS 3.1 mg/dL (2.5-4.9)
[2018-05-07] MEDS: PANTOPRAZOLE 40 MG INJ VIAL IVP SCH (08:43)
[2018-05-07] MEDS: LACTOBACILLUS RHAMNOSUS GG 1 EACH CAP PO SCH (08:43)
--- NOTE | 2018-05-07 08:51 | NUR ---
ADMINISTERED SCHEDULED MEDS, PATIENT TOLERATED WELL. ABLE TO FOLLOW SIMPLE COMMANDS. NO SIGNS OF DISTRESS NOTED, VS STABLE. WILL CONTINUE TO MONITOR
--- NOTE | 2018-05-07 09:45 | NUR ---
PATIENT OBSERVED BEING RESTLESS, TRYING TO MOVE ETT, PLACED BACK ON PROPOFOL AT THIS TIME. WILL CONTINUE TO MONITOR
[2018-05-07] MEDS: ACETAMINOPHEN 325 MG TAB PO PRN (10:10)
--- NOTE | 2018-05-07 10:12 | NUR ---
TURNED AND REPOSITIONED PATIENT, TOLERATED WELL. CHECK PATIENT'S TEMPERATURE, 100.1, WILL ADMINISTER TYLENOL PRN.
--- NOTE | 2018-05-07 10:54 | NUR ---
RT AT BEDSIDE, NO SIGNS OF DISTRESS NOTED. WILL CONTINUE TO MONITOR
--- NOTE | 2018-05-07 11:11 | NUR ---
DR. PLATT AT BEDSIDE TO SEE AND EXAMINE PATIENT, UPDATED ON PATIENT'S CONDITION, WILL FOLLOW UP ON ANY ORDERS.
[2018-05-07] MEDS: NACL 0.9% 1,000 ML IV SCH (11:20)
--- NOTE | 2018-05-07 11:40 | NUR ---
END FRAZER AT BEDSIDE TO DRAW BLOOD FOR VANCO TROUGH, NO SIGNS OF DISTRESS NOTED AT THIS TIME.
--- NOTE | 2018-05-07 12:05 | NUR ---
TURNED AND REPOSITIONED PATIENT, TOLERATED WELL. WOUND CARE PROVIDED, NO SIGNS OF DISTRESS NOTED, PATIENT TOLERATES WELL. WILL CONTINUE TO MONITOR
[2018-05-07] MEDS: SKINTEGRITY HYDROGEL TP SCH (12:08)
[2018-05-07] MEDS: VANCOMYCIN 1GM/DEXT 5% PREMIX 200 ML IV SCH (13:32)
--- NOTE | 2018-05-07 13:53 | NUR ---
PATIENT IS RESTING, NO SIGNS OF DISTRESS NOTED AT THIS TIME. WILL CONTINUE TO MONITOR
--- NOTE | 2018-05-07 15:36 | NUR ---
PATIENT TURNED AND REPOSITIONED, TOLERATED WELL. HE HAD 1 SMALL BOWEL MOVEMENT, VILLEGAS CARE PROVIDED, PATIENT TOLERATED WELL. NO SIGNS OF DISTRESS NOTED, VS STABLE. WILL CONTINUE TO MONITOR.
--- NOTE | 2018-05-07 16:32 | NUR ---
PROVIDED ORAL CARE, PATIENT TOLERATED WELL. NO SIGNS OF DISTRESS NOTED. WILL CONTINUE TO MONITOR
--- NOTE | 2018-05-07 17:20 | NUR ---
DR. MONTOYA IN TO SEE PATIENT, UPDATED ON PATIENT'S CONDITION. WILL FOLLOW UP ON ANY ORDERS.
--- NOTE | 2018-05-07 18:21 | NUR ---
PATIENT TURNED AND REPOSITIONED, TOLERATED WELL. NO SIGNS OF DISTRESS NOTED AT THIS TIME, FLACC 0. WILL CONTINUE TO MONITOR.
--- NOTE | 2018-05-07 19:06 | NUR ---
ENDORSED REPORT FOR CONTINUITY OF CARE AT BEDSIDE TO MAPPING ENGINEER RN, NO SIGNS OF DISTRESS NOTED AT THIS TIME.
--- NOTE | 2018-05-07 19:15 | NUR ---
RECEIVED REPORT FROM MORNING RN FOR CONTINUITY OF CARE. VS STABLE AT THIS TIME. PERRL. AFEBRILE. RASS -3. LUNG SOUNDS CLEAR. ETT TO VENT WITH SETTINGS: AC18, FIO2 35%, TV 500 AND PEEP 8. NO SIGNS OF RESPIRATORY DISTRESS NOTED. SINUS BRADYCARDIA TO SINUS RHYTHM ON MONITOR. PULSES PALPABLE IN ALL EXTREMITIES. PT HAS NGT THROUGH RIGHT NARES. RESIDUAL 50ML AT THIS TIME. NGT PLACEMENT CHECKED. PT HAS VITAL AF 1.2 RUNNING AT 50ML/HR WITH H20 FLUSH 170ML Q4H. ABDOMEN ROUND, SOFT AND NONDISTENDED. BS ACTIVE IN ALL QUADRANTS. PT HAS VILLEGAS CATHETER THAT IS DRAINING CLEAR AND LIGHT YELLOW URINE. PT HAS LEFT AC 18G AND LEFT UPPER ARM 20G PERIPHERAL IV ACCESS THAT ARE PATENT, INTACT AND ASYMPTOMATIC. PT HAS PROPOFOL RUNNING AT 25MCG=15.6ML/HR AND NS AT 75ML/HR. HOB AT 30 DEGREES. BED AT LOW POSSIBLE POSITION. ALL SAFETY PRECAUTIONS ARE IN PLACE. WILL CONTINUE TO MONITOR PT.
--- NOTE | 2018-05-07 19:45 | NUR ---
PT HAD A BM THAT IS LOOSE, GREENISH BROWN IN COLOR. MEDIUM AMOUNT. PT CLEANED. TURNED AND REPOSITIONED. WILL CONTINUE TO MONITOR
--- NOTE | 2018-05-07 22:26 | NUR ---
VS STABLE. SINUS BRADYCARDIA ON MONITOR. PROPOFOL STILL AT 25MCG. RASS -3; NO CHANGE IN PT CONDITION AT THIS TIME. HOB AT 30 DEGREES. NGT TO FEEDING. BED AT LOW POSSIBLE POSITION. ALL SAFETY PRECAUTIONS ARE IN PLACE. WILL CONTINUE TO MONITOR PT.
--- NOTE | 2018-05-07 22:38 | NUR ---
DR. WRIGHT AT BEDSIDE TO SEE PT. WILL FOLLOW-UP WITH ANY NEW ORDERS.
[2018-05-08] VITALS (106 sets, daily range): BP systolic 69–162; BP diastolic 44–102
--- NOTE | 2018-05-08 00:14 | NUR ---
PROPOFOL DRIP STILL RUNNING AT 25MCG. FLACC 0. RASS -3 AT THIS TIME. VS STABLE. PT AFEBRILE. WILL CONTINUE TO MONITOR PT.
--- NOTE | 2018-05-08 00:48 | NUR ---
PT TURNED AND REPOSITIONED. HAD 1 BM THAT IS LOOSE BUT NOT LIQUID IN CONSISTENCY. GREENISH BROWN IN COLOR. VILLEGAS CATHETER DRAINING WELL. WOUND DRESSINGS ON LEFT LOWER EXTREMITIES ARE INTACT AND NOT SOILED. KEPT HOB AT 30 DEGREES. ALL SAFETY PRECAUTIONS ARE IN PLACE. BED AT LOW POSSIBLE POSITION. WILL CONTINUE TO MONITOR PT.
[2018-05-08] MEDS: PROPOFOL 1000 MG/100 ML PREMIX 100 ML IV PRN ×5 (01:32→23:48)
[2018-05-08] MEDS: NACL 0.9% 1,000 ML IV SCH ×2 (01:38→05:54)
[2018-05-08] MEDS: VANCOMYCIN 1GM/DEXT 5% PREMIX 200 ML IV SCH ×2 (02:14→15:20)
--- NOTE | 2018-05-08 02:45 | NUR ---
FLACC 0. RASS -3. VS STABLE AT THIS TIME. DOES NOT APPEAR TO BE IN ANY DISTRESS. ALL SAFETY PRECAUTIONS ARE IN PLACE. NGT TO FEEDING AND SECURED IN PLACE. PT HAS GOOD URINE OUTPUT. WILL CONTINUE TO MONITOR PT.
--- NOTE | 2018-05-08 04:20 | NUR ---
MORNING CARE PROVIDED TO PT. NO BM NOTED AT THIS TIME. PT TOLERATED BEING TURNED AND REPOSITIONED WELL. BP READING WAS LOW DUE TO BP CUFF WAS REMOVED WHILE PROVIDING MORNING CARE. VILLEGAS CARE PROVIDED. PT HAD GOOD URINE OUTPUT AT THIS TIME. KEPT HOB AT 30 DEGREES. BED AT LOW POSSIBLE POSITION. ALL SAFETY PRECAUTIONS ARE IN PLACE. WILL CONTINUE TO MONITOR PT.
[2018-05-08] MEDS: PIPER/TAZO 3.375GM/D5W PREMIX 50 ML IV SCH ×4 (05:12→23:40)
[2018-05-08 05:23] LABS: ANION GAP 10.9 (8-16); CREATININE 1.1 mg/dL (0.7-1.3); POTASSIUM 3.9 mmol/L (3.5-5.1)
--- NOTE | 2018-05-08 05:57 | NUR ---
X-RAY TECH AT BEDSIDE TO OBTAIN CHEST X-RAY FOR PT.
[2018-05-08] MEDS: BLOOD GLUCOSE MONITORING 1 DEV DEV FS SCH ×4 (06:30→20:29)
--- NOTE | 2018-05-08 07:15 | NUR ---
RECEIVED BEDSIDE REPORT FROM MEN'S SWIM COACH RN FOR CONTINUITY OF CARE. PATIENT IS SEDATED, RASS -3, AROUSABLE TO NAME. SKIN IS NOT INTACT, OPEN WOUNDS TO LLE WITH DRESSINGS DRY AND INTACT. HE HAS PERIPHERAL IV SITES TO FLOR, 20 GAUGE, AND LAC 18 GAUGE. PATIENT HAS ETT TO VENT, SETTINGS ARE AC 18, FIO2 35, TV 500, PEEP 8. BREATHING IS SYMMETRICAL AND UNLABORED, SINUS SHAYE ON LIBRARY CLERK, FLACC 0. PATIENT HAS NGT PLACED IN RIGHT NARES TO TUBE FEEDING VITAL AF. VILLEGAS CATHETER IN PLACE, HAD 2 BOWEL MOVEMENTS LAST NIGHT PER MEN'S SWIM COACH RN. HOB IS 30 DEGREES, SAFETY PRECAUTIONS IN PLACE, CALL LIGHT WITHIN REACH. NO SIGNS OF DISTRESS NOTED AT THIS TIME. WILL CONTINUE TO MONITOR.
--- NOTE | 2018-05-08 07:15 | NUR ---
REPORT GIVEN TO MORNING RN FOR CONTINUITY OF CARE. PT IN STABLE CONDITION AT THIS TIME.
--- NOTE | 2018-05-08 07:19 | NUR ---
TURNED OFF PROPOFOL FOR SEDATION VACATION, PATIENT IS ABLE TO FOLLOW SIMPLE COMMANDS, RESPONDS TO NAME. NO SIGNS OF DISTRESS NOTED AT THIS TIME. WILL CONTINUE TO MONITOR
--- NOTE | 2018-05-08 07:26 | NUR ---
REC'D PT ON CARESCAPE VENT SETTINGS AC28 VT 500 PEEP 8 FIO2 35% ALARMS ON AND AUDIBLE AND AMBU BAG IS AT HOB AND VENT IS PLUGGED INTO RED OUTLET, SXN PT SMALL AMT OF THIN YELLOW SECRETIONS, B\S ARE CLEAR BILATERALLY, PT IS ORALLY INTUBATED WITH ET TUBE 8.0 AT 24CM AT LEFT CORNER OF MOUTH AND PT WAS STARTED ON SEDATION VACATION
--- NOTE | 2018-05-08 07:35 | NUR ---
PATIENT WAS PLACED BACK ON PROPOFOL, 25MCG/KG/MIN, STARTED TO GET RESTLESS AND AGITATED. WILL CONTINUE TO MONITOR
--- NOTE | 2018-05-08 08:05 | NUR ---
TURNED AND REPOSITIONED PATIENT, TOLERATED WELL. HE HAD 1 SMALL BOWEL MOVEMENT, PATIENT WAS CLEANED AND CHANGED. PATIENT WAS RESTLESS, AND VOMITED, WILL GIVE ZOFRAN WITH SCHEDULED MEDS.
[2018-05-08] MEDS: PANTOPRAZOLE 40 MG INJ VIAL IVP SCH (08:41)
[2018-05-08] MEDS: LACTOBACILLUS RHAMNOSUS GG 1 EACH CAP PO SCH (08:42)
--- NOTE | 2018-05-08 08:45 | NUR ---
SCHEDULED MEDS AND ZOFRAN PRN ADMINISTERED, TOLERATES WELL. PATIENT IS OBSERVED RESTING, WILL CONTINUE TO MONITOR.
--- NOTE | 2018-05-08 08:53 | NUR ---
VENT CHECK, PT RESTING PLACED BACK ON SEDATION AT 0735 NO SIGNS OF DISTRESS NOTED
--- NOTE | 2018-05-08 09:37 | NUR ---
PATIENT VOMITED AGAIN, FEEDING TURNED OFF PATIENT IS NOT TOLERATING WELL. WILL CONTINUE TO MONITOR
[2018-05-08] MEDS: LORazepam 2 MG/ML VIAL IVP PRN (09:43)
--- NOTE | 2018-05-08 09:47 | NUR ---
ADMINISTERED PRN ATIVAN 0.5 MG DUE TO PATIENT OBSERVED BEING RESTLESS. WILL CONTINUE TO MONITOR PATIENT.
--- NOTE | 2018-05-08 10:21 | NUR ---
05/08/18 RD FOLLOW UP COMPLETED PLEASE REFER TO NUTRITION PROGRESS NOTE UNDER CARE ACTIVITY FOR ESTIMATED NUTRITION NEEDS. RD RECOMMENDATIONS: 1. CONTINUE TF VITAL AF 1.2 @ 50 ML/HR, INCREASING TOWARDS GOAL RATE 70 ML/HR WITH 170 ML H2O FLUSH Q4H TOLERATED --NUTRITION SUPPORT PROVIDES 2016 KCAL (98% ESTIMATED KCAL NEEDS), 126 GM PRO (100% ESTIMATED PROTEIN NEEDS), AND 2042 ML FLUID 2. RECOMMEND 1 PKT ANGIE QD FOR WOUND HEALING 3. FOLLOW-UP DIABETES NUTRITION EDUCATION WHEN APPROPRIATE 4. RD TO FOLLOW-UP 2-3 DAYS, HIGH RISK KENDALL FELIPE, MS, RDN
--- NOTE | 2018-05-08 11:00 | NUR ---
VENT CHECK, SXN PT SMALL AMT OF YELLOW SECRETIONS, AIRWAY IS PATENT AND PT IS RESTING
--- NOTE | 2018-05-08 12:28 | NUR ---
DR. PLATT IN TO SEE AND EXAMINE PATIENT, UPDATED ON PATIENT'S CONDITION. HE CHANGED SETTINGS ON VENT TO PEEP 5. WILL FOLLOW UP ON ANY ORDERS.
--- NOTE | 2018-05-08 12:46 | NUR ---
MAINTENANCE MECHANIC HELPER AT BEDSIDE FOR KUB, NO SIGNS OF DISTRESS NOTED. WILL CONTINUE TO MONITOR
--- NOTE | 2018-05-08 12:52 | NUR ---
VENT CHECK, NO SXN NEEDED AIRWAY IS PATENT AND PT IS SLEEPING
[2018-05-08] MEDS ORDERED: FLUCONAZOLE 200 MG/NS PREMIX 100 ML IV SCH (13:00)
[2018-05-08] MEDS: SKINTEGRITY HYDROGEL TP SCH (13:48)
--- NOTE | 2018-05-08 14:57 | NUR ---
VENT CHECK, SXN PT SMALL AMT OF YELLOW SECRETIONS PT RESTING
--- NOTE | 2018-05-08 15:26 | NUR ---
PATIENT TURNED AND REPOSITIONED, HE HAD 1 MODERATE BM. PATIENT IS CLEANED AND LINENS CHANGED. TOLERATED WELL. NO SIGNS OF DISTRESS NOTED AT THIS TIME, WILL CONTINUE TO MONITOR
--- NOTE | 2018-05-08 17:03 | NUR ---
CALLED DR. PLATT REGARDING KUB RESULTS, RECEIVED ORDER FOR REGLAN 10MG IV Q6H, WILL CARRY OUT ORDERS.
--- NOTE | 2018-05-08 17:03 | NUR ---
VENT CHECK, SXN PT SMALL AMT OF YELLOW SECRETIONS AIRWAY IS PATENT AND PT IS RESTING
--- NOTE | 2018-05-08 17:06 | NUR ---
PER DR. PLATT, PATIENT CAN BE STARTED BACK ON TUBE FEEDING WHEN NO RESIDUALS
[2018-05-08] MEDS: METOCLOPRAMIDE 10 MG/2 ML INJ VIAL IVP SCH ×2 (18:27→23:52)
--- NOTE | 2018-05-08 20:50 | NUR ---
BS CHECKED 68 NOTED. ADMINISTERED SCHEDULED MEDICATIONS ORDERED AND GIVEN DEXTROSE 50% AND STARTED TUBE FEEDING ORDERED. NGT PLACEMENT CHECKED, NO RESIDUAL NOTED. FLACC 0. WILL CONTINUE TO MONITOR.
--- NOTE | 2018-05-08 21:00 | NUR ---
AT BEDSIDE TO CHECK THE PATIENT, WILL FOLLOW ORDERS.
--- NOTE | 2018-05-08 22:16 | NUR ---
RECEIVED REPORT FROM MORNING SHIFT NURSE. PATIENT SEDATED WITH PROPOFOL DRIP, RASS SCORE -3, PROPOFOL RUNNING AT 25MCG/KG/MIN. ETT TO VENT WITH SETTING AC, FIO2 35%, VT 500, RATE 18, PEEP 5 NOTED. NO ACUTE DISTRESS NOTED AT THIS TIME. RIGHT LUNG SOUND COARSE AND LEFT CLEAR, SYMMETRICAL MOVEMENT. S1 AND S2 HEARD SINUS SHAYE ON MONITOR. ACTIVE BOWEL SOUNDS, NG TUBE IN PLACE ON RIGHT NARES, FEEDING IS ON HOLD DUE TO PATIENT VOMIT AT MORNING. NO RESIDUAL NOTED. PERIPHERAL LINES TO LEFT AC 20G AND 18G, INTACT AND PATENT. VILLEGAS CATH IN PLACE DRAINING CLEAR YELLOW COLORED URINE WITH GRAVITY. WOUNDS ON LEFT LOWER LEG, BOTH DRESSINGS DRY AND INTACT. HOB ELEVATED 30 DEGREE, BED IN LOW POSITION, CALL LIGHT WITHIN REACH, WILL CONTINUE TO MONITOR. Addendum: 05/09/18 at 0047 by Rani Mills RN LATE ENTRY FOR 05/08/181919
[2018-05-09] VITALS (68 sets, daily range): BP systolic 113–174; BP diastolic 57–89
--- NOTE | 2018-05-09 | NUR ---
PATIENT SEDATED WITH PROPOFOL DRIP, RASS -3. PATIENT HAD BM, SMALL AMOUNT OF LOOSE BROWN STOOL NOTED. PATIENT HAD A EPISODE OF VOMITING, NGT RESIDUAL CHECKED LESS THAN 20CC NOTED AND PLACEMENT CHECKED. HOLD FEEDING AT THIS TIME.
--- NOTE | 2018-05-09 01:30 | NUR ---
PATIENT SEDATED WITH PROPOFOL DRIP, RASS -3. FLACC 0. STARTED NGT TO FEEDING, RESIDUAL CHECKED 0ML NOTED. WILL CONTINUE TO MONITOR.
[2018-05-09] MEDS: VANCOMYCIN 1GM/DEXT 5% PREMIX 200 ML IV SCH ×2 (01:52→14:22)
--- NOTE | 2018-05-09 02:00 | NUR ---
ADMINISTERED SCHEDULED ABX ORDERED. PATIENT TOLERATED WELL. NO ACUTE DISTRESS NOTED. WILL CONTINUE TO MONITOR.
--- NOTE | 2018-05-09 03:30 | NUR ---
NO ACUTE DISTRESS NOTED. FLACC 0. TOLERATED WELL WITH VENT SETTING. WILL CONTINUE TO MONITOR.
[2018-05-09] MEDS: METOCLOPRAMIDE 10 MG/2 ML INJ VIAL IVP SCH ×4 (05:20→23:00)
[2018-05-09] MEDS: PIPER/TAZO 3.375GM/D5W PREMIX 50 ML IV SCH ×4 (05:20→23:00)
[2018-05-09 05:56] LABS: ANION GAP 9.9 (8-16); CREATININE 0.9 mg/dL (0.7-1.3); POTASSIUM 3.9 mmol/L (3.5-5.1)
--- NOTE | 2018-05-09 06:00 | NUR ---
PATIENT SEDATED, RASS -3 NOTED. NO ACUTE DISTRESS NOTED. FLACC 0. WILL CONTINUE TO MONITOR.
[2018-05-09] MEDS: PROPOFOL 1000 MG/100 ML PREMIX 100 ML IV PRN ×2 (06:07→11:44)
[2018-05-09] MEDS: BLOOD GLUCOSE MONITORING 1 DEV DEV FS SCH ×4 (06:10→20:04)
--- NOTE | 2018-05-09 06:27 | NUR ---
RECEIVED PT ON CARESCAPE ON DOCUMENTED SETTINGS ALARMS ARE ON AND AUDIBLE PTS ET TUBE SIZE 8.0 IS SECURE [address] FA[address] IN PL[address] BS CLEAR\DIM PT IN HF ASLEEP BMV HOB VENT PLUGGED INTO RED OUTLET
--- NOTE | 2018-05-09 07:10 | NUR ---
BEDSIDE REPORT GIVEN TO MORNING SHIFT NURSE FOR CONTINUITY OF CARE.
--- NOTE | 2018-05-09 07:32 | NUR ---
RECEIVED REPORT FROM NIGHT NURSE. PT SEDATED ON 25MCG/MIN OF PROPOFOL. YENNI -3. SKIN WARM AND DRY. PUPILS EQUAL AND REACTIVE TO LIGHT. ETT TUBE 24 AT THE TEETH. VENT SETTINGS FiO2 35% VT-500 PEEP-5 RATE-18. NG TUBE RIGHT NARES TUBE FEEDING RUNNING AT 50ML/HR. CRACKLES HEARD IN BILATERAL LUNG SOUNDS. BOWEL SOUNDS ACTIVE. WOUNDS ON LEFT LOWER LEG DRESSING DRY AND INTACT. S1S2 HEARD. SINUS SHAYE ON MONITOR. WILL CONTINUE TO MONITOR.
--- NOTE | 2018-05-09 08:15 | NUR ---
sedation vacation started. pt able to follow commands. propofol restart at 25mcg/min. will continue to monitor.
[2018-05-09] MEDS: FLUCONAZOLE 200 MG/NS PREMIX 100 ML IV SCH (08:28)
[2018-05-09] MEDS: PANTOPRAZOLE 40 MG INJ VIAL IVP SCH (08:28)
[2018-05-09] MEDS: LACTOBACILLUS RHAMNOSUS GG 1 EACH CAP PO SCH (08:29)
[2018-05-09] MEDS: LORazepam 2 MG/ML VIAL IVP PRN ×2 (09:45→15:21)
--- NOTE | 2018-05-09 11:00 | NUR ---
PATIENTS VILLEGAS CATH IS NOT WORKING. PT URINE IS LEAKING AROUND IT. TRIED TO TROUBLE SHOOT WITHOUT SUCCESS. VILLEGAS CATHETER D/C AND NEW ONE PUT IN P LACE.
--- NOTE | 2018-05-09 11:53 | NUR ---
DR. PLATT IN TO SEE AND EXAMINE PATIENT,UPDATED ON PATIENT'S CONDITION. WILL FOLLOW UP ON ANY ORDERS.
--- NOTE | 2018-05-09 12:44 | NUR ---
RT AT BEDSIDE. PT PLACED ON C-PAP PER DR PLATT ORDERS. ABG WILL BE DONE TO VERIFY PT IS TOLERATING WELL. WILL CHECK BACK.
[2018-05-09] MEDS: SKINTEGRITY HYDROGEL TP SCH (13:00)
--- NOTE | 2018-05-09 13:49 | NUR ---
PT EXTUBATED PLACED ON BIPAP PER DR SALOMON
--- NOTE | 2018-05-09 13:50 | NUR ---
PER DOCTORS ORDERS PT EXTUBATED. PLACED ON BIPAP. WILL CONTINUE TO MONITOR.
--- NOTE | 2018-05-09 13:54 | NUR ---
PLACED PT ON BIPAP ST 18\6 RR 18 FIO2 35 DUNNE V60 PT IN HF WEARING F\F MASK SIZE LG GEL PLACED UNDER MASK BMV HOB BIPAP PLUGGED INTO RED OUTLET
--- NOTE | 2018-05-09 14:03 | NUR ---
DR. ESCOBEDO IN TO SEE AND EXAMINE PATIENT, UPDATED ON PATIENT'S CONDITION. WILL FOLLOW UP ON ANY ORDERS
--- NOTE | 2018-05-09 14:36 | NUR ---
Clinical review faxed to [facility]. [phone].
--- NOTE | 2018-05-09 15:15 | NUR ---
PATIENT AGITATED AND GRABBING AT BIPAP MASK. 0.5MG OF ATIVAN GIVEN PER PRN ORDER.
--- NOTE | 2018-05-09 18:50 | NUR ---
ABG results called into Dr Almazan, ordered to keep on BIPAP over night with breaks for meals, will cont to monitor.
--- NOTE | 2018-05-09 19:04 | NUR ---
GAVE REPORT TO NIGHT NURSE. PATIENT ALERT AND STABLE.
--- NOTE | 2018-05-09 19:11 | NUR ---
RECEIVED REPORT FROM AM NURSE. PT AWAKE AND ALERT. NO SIGNS OF ACUTE DISTRESS NOTED. AFEBRILE. FOLLOWS COMMANDS. LUNGS CTA BILAT. ON BIPAP ST 18/6 RR 18 FIO2 35 V60. SR ON MONITOR. NGT RIGHT NARE. ON TUBE FEEDING VITAL AF 50ML/HR. BOWEL SOUNDS ACTIVE X 4 QUADRANTS. F/C PATENT. URINE CLEAR YELLOW, BLADDER NON-DISTENDED. IV SITE FLOR 20G PATENT. WOUND DRESSING LLE INTACT. BED IN LOWEST POSITION. SIDE RAILS UP X4. CALL LIGHT WITHIN REACH. WILL CONTINUE TO MONITOR.
--- NOTE | 2018-05-09 20:40 | NUR ---
PM CARE PROVIDED AT THIS TIME. NO SIGNS OF ACUTE DISTRESS. WILL CONTINUE TO MONITOR
--- NOTE | 2018-05-09 21:00 | NUR ---
RT AT BEDSIDE AT THIS TIME.
--- NOTE | 2018-05-09 23:25 | NUR ---
SPOKE TO ONCALL ATTENDING DR. CAMACHO ABOUT RENEWING ZOSYN ABX THERAPY. RECEIVED THE ORDER. WILL CONTINUE TO FOLLOW UP ANY ADDITIONAL ORDERS.
[2018-05-10] VITALS (22 sets, daily range): BP systolic 132–165; BP diastolic 54–112
--- NOTE | 2018-05-10 00:16 | NUR ---
PT RESTING QUIETLY AT THIS TIME. NO C/O PAIN. NO SIGNS OF ACUTE DISTRESS NOTED. BED IN LOWEST POSITION. CALL LIGHT WITHIN REACH.
[2018-05-10] MEDS: VANCOMYCIN 1GM/DEXT 5% PREMIX 200 ML IV SCH ×3 (01:00→20:25)
[2018-05-10] MEDS: LORazepam 2 MG/ML VIAL IVP PRN ×2 (01:33→15:12)
--- NOTE | 2018-05-10 01:34 | NUR ---
PT AGITATED AT THIS TIME BY PULLING ON TUBES. GIVEN ATIVAN 0.5MG IVP PRN. WILL CONTINUE TO MONITOR
[2018-05-10] MEDS: IPRATROPIUM 0.02% 0.5 MG/2.5 ML NEBU INH PRN (01:41)
[2018-05-10] MEDS: ALBUTEROL 0.083% 2.5 MG/3 ML NEBU INH PRN (01:41)
--- NOTE | 2018-05-10 03:12 | NUR ---
PT RESTING QUIETLY IN BED. NO SIGNS OF ACUTE DISTRESS AT THIS TIME. SIDE RAILS UP X4. BED IN LOWEST POSITION. WILL CONTINUE TO MONITOR.
[2018-05-10] MEDS: PIPER/TAZO 3.375GM/D5W PREMIX 50 ML IV SCH ×3 (05:19→17:05)
[2018-05-10] MEDS: METOCLOPRAMIDE 10 MG/2 ML INJ VIAL IVP SCH ×3 (05:20→17:18)
--- NOTE | 2018-05-10 06:27 | NUR ---
REC'D PT ON SREEKANTH V60 BIPAP SETTINGS 18/6 RR18 FIO2 35% ALARMS ON AND AUDIBLE AND AMBU BAG IS AT SIDE OF BIPAP AND BIPAP IS PLUGGED INTO RED OUTLET, NO HHN WAS NEEDED AT THIS TIME, B\S ARE CLEAR BILATERALLY, PT IS WEARING MED FACE MASK WITH PROTETIC GEL IN PLACE AND PT IS SLEEPING
[2018-05-10 06:42] LABS: BASOPHILS # (AUTO) 0.2 K/uL (0.00-0.22); BASOPHILS % (AUTO) 1.2 % (0.0-2.0); EOSINOPHILS # (AUTO) 0.1 K/uL (0-0.4); EOSINOPHILS % (AUTO) 0.5 % (0.0-4.0); HEMATOCRIT 27.5 % (36-52); HEMOGLOBIN 9.1 g/dL (12.0-18.0); LYMPHOCYTES # (AUTO) 1.5 K/uL (2.0-11.5); LYMPHOCYTES % (AUTO) 10.6 % (20.5-51.1); MEAN CORPUSCULAR HEMOGLOBIN 31 pg (27-31); MEAN CORPUSCULAR HGB CONC 33 g/dL (33-37); MEAN CORPUSCULAR VOLUME 94.9 fL (80-94); MONOCYTES # (AUTO) 1.4 K/uL (0.8-1.0); MONOCYTES % (AUTO) 9.6 % (1.7-9.3); NEUTROPHILS # (AUTO) 11.1 K/uL (1.8-7.7); NEUTROPHILS % (AUTO) 78.1 % (42.2-75.2); PLATELET COUNT (AUTO) 438 K/uL (140-450); RED BLOOD CELL COUNT(AUTO) 2.89 MIL/uL (4.20-6.10); RED CELL DISTRIBUTION WIDTH 13.3 % (11.6-13.7); WHITE BLOOD COUNT (AUTO) 14.3 K/uL (4.8-10.8)
[2018-05-10] MEDS: BLOOD GLUCOSE MONITORING 1 DEV DEV FS SCH ×4 (06:49→20:25)
--- NOTE | 2018-05-10 07:15 | NUR ---
RECEIVED REPORT FROM EARRING MAKER RN. PT RESTING IN BED AROUSABLE. A/O X2. SR ON MONITOR. ON BIPAP. NG TUBE NOTED ON RIGHT NARES. POSITIVE PLACEMENT. VITAL AF RUNNING AT 50 ML/HR. RESIDUAL 0. LUNGS CLEAR ON AUSCULTATION. PERIPHERAL LINE NOTED ON LEFT UPPER ARM. INTACT LINE, FLUSHED. NS FOR KVO AT 5 ML/HR. EDEMATOUS BOTH UPPER EXTREMITIES. ABDOMEN SOFT ROUND AND NON-TENDER. ACTIVE BOWEL SOUND. OPEN WOUND NOTED ON LEFT LOWER EXTREMITY. COVERED WITH DRESSING. NO DRAINAGE AT WOUND SITE. CALL LIGHT WITHIN REACH. BED IN LOW POSITION. LOCKED. WILL CONTINUE TO MONITOR.
--- NOTE | 2018-05-10 07:15 | NUR ---
ENDORSED CARE TO INCOMING SHIFT. PT IN STABLE CONDITION. PT CLEAN AND DRY. CALL LIGHT WITHIN REACH. NO SIGNS OF ACUTE DISTRESS AT THIS TIME.
[2018-05-10 07:21] LABS: ANION GAP 10.5 (8-16); CARBON DIOXIDE 28.6 mmol/L (21-32); CREATININE 0.7 mg/dL (0.7-1.3); POTASSIUM 4.1 mmol/L (3.5-5.1)
[2018-05-10] MEDS: LACTOBACILLUS RHAMNOSUS GG 1 EACH CAP PO SCH (08:29)
[2018-05-10] MEDS: PANTOPRAZOLE 40 MG INJ VIAL IVP SCH (08:29)
--- NOTE | 2018-05-10 08:43 | NUR ---
NO ACUTE RESPIRATORY DISTRESS NOTED. CONTINUE ON BEDSIDE MONITORING.
[2018-05-10] MEDS: FLUCONAZOLE 200 MG/NS PREMIX 100 ML IV SCH (09:17)
--- NOTE | 2018-05-10 11:36 | NUR ---
VS WNL. NO CHANGES IN CONDITION. ABLE TO VERBALIZE NEEDS AND SELF REPOSITION. ON CONTINUOUS MONITORING.
--- NOTE | 2018-05-10 12:23 | NUR ---
VANCO TROUGH DRAWN. WILL WAIT FOR RESULT TO ADMINISTER VANCOMYCIN.
[2018-05-10] MEDS: SKINTEGRITY HYDROGEL TP SCH (13:33)
[2018-05-10] MEDS ORDERED: VANCOMYCIN PER PHARMACY MC PRN (13:40)
--- NOTE | 2018-05-10 13:40 | NUR ---
SEEN BY DR. PLATT. WILL FOLLOW UP ON ORDER.
--- NOTE | 2018-05-10 13:51 | NUR ---
PT ON OXYMIZER AT 6 LTR/MIN. RT AT BEDSIDE.
--- NOTE | 2018-05-10 13:52 | NUR ---
PT OFF BIPAP PER DR. PLATT AND PLACED ON 6L OXYMIZER PT IS AWAKE AND ALERT
--- NOTE | 2018-05-10 14:13 | NUR ---
FAXED CONCURRENT REVIEW TO [facility] [phone] PHONE ALFONZO [phone] X [phone]
--- NOTE | 2018-05-10 15:00 | NUR ---
SWALLOW EVALUATION COMPLETED, PT DID NOT PASS SWALLOW EVALUATION. NOTED PT DESATURATED. CALLED RT FOR EVALUATION.
--- NOTE | 2018-05-10 15:03 | NUR ---
WARP WORKER note (bedside swallow evaluation) [phone]. Bedside swallow evaluation completed, please see report for details. WARP WORKER provided pt with education on purpose of bedside swallow evaluation and rationale for recommendations, pt agitated and restless and unable to benefit from education provided at this time. No family present at this time. Recommend: 1) STRICT NPO (oral cares only) 2) continue alternative method(s) of nutrition/hydration/medication vs comfort measures, as appropriate 3) no further WARP WORKER intervention indicated at this time. Physician may reorder once pt's respiratory status stabilizes and pt able to maintain WNL respiration rates for decreased aspiration risks, as appropriate. G-codes: [id number] [facility] NOMS level 1. WARP WORKER d/w RN (Alba) prior to and following bedside swallow evaluation completion, and d/w kiln charger following bedside swallow evaluation completion.
--- NOTE | 2018-05-10 15:05 | NUR ---
CALLED TO ICU 5 PT WAS DESATURATING TO 85% AND VERY AGITATED, THEN PLACED PT ON VENTI MASK AT 15L 50% O2 SAT WAS STILL LOW THEN CHANGED TO NRB AT 15L. PT WAS IN RESPIRATORY DISTRESS PLACED PT BACK ON BIPAP WITH SETTINGS 18/6 RR18 FIO2 90% PT WAS GIVEN ATIVAN AND PT RELAXED. DR. PLATT WAS CALLED TWICE. AND WAITING FOR THE RETURN CALL BACK TO TELL DR. PLATT ABOUT PT. Addendum: 05/10/18 at 1531 by Marissa Lunsford RT PT WAS ALSO SXN BY NTS
--- NOTE | 2018-05-10 15:32 | NUR ---
PT IS NOW RESTING WITH O2 SAT OF 100% AND BP 171/89 HEART RATE OF 100 RN CHAD AT BEDSIDE
--- NOTE | 2018-05-10 15:35 | NUR ---
05/10/18 RD FOLLOW UP COMPLETED PLEASE REFER TO NUTRITION PROGRESS NOTE UNDER CARE ACTIVITY FOR ESTIMATED NUTRITION NEEDS. RD RECOMMENDATIONS: 1. CONTINUE TF VITAL AF 1.2 @ 60 ML/HR, INCREASING TOWARDS GOAL RATE 70 ML/HR WITH 170 ML H2O FLUSH Q4H TOLERATED --AT GOAL, NUTRITION SUPPORT PROVIDES 2016 KCAL (98% ESTIMATED KCAL NEEDS), 126 GM PRO (100% ESTIMATED PROTEIN NEEDS), AND 2042 ML FLUID 2. SHOULD PT PASS SWALLOW EVAL, CONSIDER FULL LIQUID DIET WITH TEXTURE MODIFICATIONS PER OBSTETRICIAN RECOMMENDATIONS TOLERATED 3. RECOMMEND 1 PKT ANGIE QD FOR WOUND HEALING 4. FOLLOW-UP DIABETES NUTRITION EDUCATION WHEN APPROPRIATE 5. RD TO FOLLOW-UP 2-3 DAYS, HIGH RISK RABIA GIBSON RD
--- NOTE | 2018-05-10 15:55 | NUR ---
SPOKE WITH CONCERNING THE PTS CONDITION AND EXPLAINED PLACING PT BACK ON BIPAP HE ORDERED STAT CHEST XRAY AND SAID TO LEAVE PT ON BIPAP
[2018-05-10] MEDS: cloNIDine 0.1 MG TAB PO PRN (16:05)
--- NOTE | 2018-05-10 16:22 | NUR ---
PT SLEEPING AT THIS TIME. ON BIPAP, FIO2 DECREASED TO 80%. TOLERATING WELL. CONTINUE ON MONITORING.
[2018-05-10] MEDS: INSULIN LISPRO SLIDING SCALE 100 UNITS/ML VIAL SUBQ PRN (17:01)
--- NOTE | 2018-05-10 17:30 | NUR ---
CATHETER CARE PROVIDED. KEPT PT CLEAN AND IN COMFORTABLE POSITION. NO ACUTE RESP DISTRESS NOTED. WILL CONTINUE TO MONITOR.
[2018-05-10] MEDS ORDERED: PIPER/TAZO 3.375GM/D5W PREMIX 50 ML IV SCH (18:00)
--- NOTE | 2018-05-10 18:00 | NUR ---
SENT A PAGE TO DR. DAVON TODD NUCLEAR LICENSING ENGINEER. AWAITING FOR CALL BACK.
--- NOTE | 2018-05-10 18:37 | NUR ---
DR. SANDOVAL CALLED BACK FOR DR. MAYS, MADE AWARE OF X RAY RESULT AND WITH ORDERS TO KEEP PATIENT IN ICU.
--- NOTE | 2018-05-10 19:28 | NUR ---
ENDORSED TO BOOK PACKER RN FOR CONTINUITY OF CARE. PT ON STABLE CONDITION.
--- NOTE | 2018-05-10 19:30 | NUR ---
RECEIVED REPORT FROM MORNING SHIFT NURSE. PATIENT AAO X3 WITH ON BIPAP, SETTING WITH IPAP 16, EPAP 6, RATE 18, FIAO2 80% NOTED. PATIENT ABLE TO MAKE NEEDS KNOWN. NO ACUTE DISTRESS NOTED AT THIS TIME. BILATERAL LUNG SOUNDS CLEAR, SYMMETRICAL MOVEMENT. S1 AND S2 HEARD SR ON MONITOR. ACTIVE BOWEL SOUNDS, NG TUBE IN PLACE ON RIGHT NARES, TO FEEDING VITAL AF 70ML/HR AND H2O FLUSH 170ML Q4H NOTED. 30ML RESIDUAL NOTED. PERIPHERAL LINES TO LEFT UPPER ARM 20G, INTACT AND PATENT. VILLEGAS CATH IN PLACE DRAINING CLEAR YELLOW COLORED URINE WITH GRAVITY. WOUNDS ON LEFT LOWER LEG, BOTH DRESSINGS DRY AND INTACT. HOB ELEVATED 30 DEGREE, BED IN LOW POSITION, CALL LIGHT WITHIN REACH, WILL CONTINUE TO MONITOR.
--- NOTE | 2018-05-10 20:45 | NUR ---
ADMINISTERED SCHEDULED MEDICATIONS ORDERED, TOLERATED WELL. NO ACUTE DISTRESS NOTED. PATIENT TOLERATED WELL WITH BIPAP. BS CHECKED 128 NOTED. WILL CONTINUE TO MONITOR.
--- NOTE | 2018-05-10 23:05 | NUR ---
PATIENT ON BIPAP AND IN ASLEEP, TOLERATED WELL WITH BIPAP. NO ACUTE DISTRESS NOTED. WILL CONTINUE TO MONITOR.
[2018-05-11] VITALS (15 sets, daily range): BP systolic 120–191; BP diastolic 46–109
[2018-05-11] MEDS: PIPER/TAZO 3.375GM/D5W PREMIX 50 ML IV SCH ×4 (00:13→17:05)
[2018-05-11] MEDS: METOCLOPRAMIDE 10 MG/2 ML INJ VIAL IVP SCH ×4 (00:13→17:05)
--- NOTE | 2018-05-11 01:20 | NUR ---
ADMINISTERED SCHEDULED MEDICATIONS ORDERED. PATIENT TOLERATED WELL WITH BIPAP. NO ACUTE DISTRESS NOTED. WILL CONTINUE TO MONITOR.
--- NOTE | 2018-05-11 02:30 | NUR ---
PATIENT TOLERATED WELL WITH BIPAP AND TUBE FEEDING. DENIES PAIN AT THIS TIME. PATIENT IN ASLEEP, AROUSABLE TO VOICE. NO ACUTE DISTRESS NOTED.
--- NOTE | 2018-05-11 02:45 | NUR ---
PATIENT COMPLAINED UNCOMFORTABLE WITH BIPAP AT THIS TIME, PAGED RT. RT AT BEDSIDE AND CHANGED TO NON REBREATHER MASK WITH O2 15L/M. O2 SAT ABOVE 95% NOTED. WILL CONTINUE TO MONITOR.
--- NOTE | 2018-05-11 03:10 | NUR ---
PATIENT REPORTED HAVING HEADACHE 5/10. ADMINISTERED PRN NORCO ORDERED AT THIS TIME. WILL CONTINUE TO MONITOR.
[2018-05-11] MEDS: cloNIDine 0.1 MG TAB PO PRN ×2 (03:14→22:16)
--- NOTE | 2018-05-11 03:15 | NUR ---
PATIENT'S BP GOING UP TO 180/102 NOTED. ADMINISTERED CATAPRES 0.1MG AT THIS TIME.
[2018-05-11] MEDS: ALBUTEROL 0.083% 2.5 MG/3 ML NEBU INH PRN ×2 (03:21→03:33)
[2018-05-11] MEDS: IPRATROPIUM 0.02% 0.5 MG/2.5 ML NEBU INH PRN (03:33)
[2018-05-11] MEDS: LORazepam 2 MG/ML VIAL IVP PRN ×3 (03:36→23:35)
--- NOTE | 2018-05-11 03:38 | NUR ---
0245 PATIENT WANTED BIPAP UNIT OFF, AND PLACED ON NRM, AT 0315 PT DIAPHORETIC, AGITATED INCREASED HR, B/P[191/109, BS VERY COARSE AND WHEEZING,, SAO2 DECREASED TO 87% PLACED BACK ON BIPAP 21/03 , RR18, FIO2 60%. ALBUTERLOL 5MG AND ATROVENT 0.5MG GIVEN VIA HHN INLINE BIPAP. SAO2 INCREASED TO 95% . ALSO MARY PINZON GAVE ATIVAN TO RELAX PATIENT
--- NOTE | 2018-05-11 03:40 | NUR ---
PATIENT GETTING AGITATED WITH DIAPHORETIC, ADMINISTERED ATIVAN AT THIS TIME. RT PUT BIPAP BACK TO PATIENT. WILL CONTINUE TO MONITOR.
--- NOTE | 2018-05-11 04:00 | NUR ---
PATIENT CALM DOWN AND BP GETTING LOWER, TOLERATED WELL WITH BIPAP. WILL CONTINUE TO MONITOR.
[2018-05-11] MEDS: VANCOMYCIN 1GM/DEXT 5% PREMIX 200 ML IV SCH ×3 (04:54→22:15)
--- NOTE | 2018-05-11 05:00 | NUR ---
ADMINISTERED SCHEDULED ABX ORDERED. PATIENT IN ASLEEP. BP 145/75 NOTED. WILL CONTINUE TO MONITOR.
[2018-05-11 05:36] LABS: ANION GAP 7.2 (8-16); CARBON DIOXIDE 28.8 mmol/L (21-32); CREATININE 0.9 mg/dL (0.7-1.3)
--- NOTE | 2018-05-11 06:58 | NUR ---
RCV'D PT ON BIPAP WITH CHARTED SETTINGS. FACIAL MASK MEDIUM. BIPAP IS CONNECTED TO RED OUTLET. ALARMS AUDIBLE. AMBU BAG AT BED SIDE. PT IS ASLEEP COMFORTABLY. NO SOB OR DISTRESS NOTED. CLEAR BREATH SOUNDS. RN AT BEDSIDE. WILL CONTINUE TO MONITOR.
[2018-05-11] MEDS: BLOOD GLUCOSE MONITORING 1 DEV DEV FS SCH ×4 (07:20→20:23)
--- NOTE | 2018-05-11 07:25 | NUR ---
BEDSIDE REPORT GIVEN TO TONY.MARY FOR CONTINUITY OF CARE.
--- NOTE | 2018-05-11 07:30 | NUR ---
RECEIVED REPORT FROM PM NURSE, PT SLEEPING BUT EASILY AROUSABLE WITH INITIAL ASSESSMENT. TELE STATUS, BEDSIDE MONITOR SHOWS SR. ON BIPAP WITH FIO2 60%. HAS NG TUBE FEEDING AT 70 MLS/HR WITH WATER FLUSH 170 MLS/HR Q4 H. PT TOLERATED WELL. IV TO RIGHT FA # 20 NS KTO AT 5 MLS/HR. SKIN NON INTACT, POC EXPLAINED TO PT, PT NODDED HIS HEAD. CALL LIGHT IN REACH, WILL CONTINUE TO MONITOR.
[2018-05-11] MEDS: PANTOPRAZOLE 40 MG INJ VIAL IVP SCH (08:32)
[2018-05-11] MEDS: LACTOBACILLUS RHAMNOSUS GG 1 EACH CAP PO SCH (08:33)
[2018-05-11] MEDS: FLUCONAZOLE 200 MG/NS PREMIX 100 ML IV SCH (08:51)
--- NOTE | 2018-05-11 11:30 | NUR ---
TUBE FEEDING BAG AND TUBE ARE REPLACED. PT TOLERATED TUBE FEEDING WELL.
--- NOTE | 2018-05-11 12:00 | NUR ---
PHYSICAL THERAPY AT BEDSIDE.
--- NOTE | 2018-05-11 12:43 | NUR ---
Scow Captain Note: I called and spoke with patient's father Puneet Arreguin . Puneet speaks Kuwaiti. Per Puneet, patient can't go to his home upon discharge. He stated the protection specialist of the house where he is living in will not allow more individuals to live in his home. He reported patient has lied to all of his family members and has ruined his relationships with them that none of them want to be involve in his life.
[2018-05-11] MEDS: SKINTEGRITY HYDROGEL TP SCH (13:00)
[2018-05-11] MEDS: INSULIN LISPRO SLIDING SCALE 100 UNITS/ML VIAL SUBQ PRN ×2 (13:18→16:32)
[2018-05-11] MEDS: FUROSEMIDE 100 MG/10 ML VIAL IV SCH ×2 (14:00→20:24)
--- NOTE | 2018-05-11 14:11 | NUR ---
PT OFF BIPAP AND ON [address] AIME PERRY. PT SPO2 IS 100% AND TOLERATING WELL. MARY JIMENEZ AT BEDSIDE. WILL CONTINUE TO MONITOR. Addendum: 05/11/18 at 1413 by Viviana Evans RT BIPAP ON STANDBY AT BEDSIDE.
[2018-05-11] MEDS ORDERED: FUROSEMIDE 100 MG/10 ML VIAL IV SCH (14:15)
--- NOTE | 2018-05-11 15:14 | NUR ---
CONCURRENT REVIEW FAXED TO [facility] [phone] PHONE ALFONZO [phone]
--- NOTE | 2018-05-11 15:15 | NUR ---
PT STAYING IN BED, ON OXYMIZER 10 L/MIN, NO SOB NOTED.
--- NOTE | 2018-05-11 18:07 | NUR ---
PT IS AGITATED AND KEEPS SAYING "I WANT TO LEAVE, I WANT TO GO HOME". EXPLAINED TO PT HE NEEDS TO STAY IN HOSPITAL DUE TO HIS CONDITION. PT KEEPS MOVING HIS LEGS, BEDSIDE MONITOR HR INCREASED FROM 70S TO 90S. O2 SATS 95%, ATIVAN 0.5 MG GIVEN ORDERED. WILL CONTINUE TO MONITOR PT.
--- NOTE | 2018-05-11 19:30 | NUR ---
RECEIVED REPORT FROM MORNING RN FOR CONTINUITY OF CARE. VS STABLE AT THIS TIME. PT AWAKE, ALERT AND ORIENTED X2. ABLE TO FOLLOW COMMAND AND MAKE NEEDS KNOWN. PT ON OXIMIZER AT 10L/MIN. NO SIGNS OF RESPIRATORY DISTRESS NOTED. SR ON MONITOR. S1+S2 HEARD. PULSES PALPABLE IN ALL EXTREMITIES. PT HAS NGT THROUGH RIGHT NARES. NGT TO FEEDING. NO RESIDUAL NOTED. PLACEMENT CHECKED. ABDOMEN ROUND, SOFT AND NONDISTENDED. BS ACTIVE IN ALL QUADRANTS. VILLEGAS CATHETER IN PLACE AND DRAINING CLEAR, YELLOW URINE. PT HAS RIGHT FOREARM PERIPHERAL IV ACCESS THAT IS PATENT, INTACT AND ASYMPTOMATIC. ALL SAFETY PRECAUTIONS ARE IN PLACE. BED AT LOW POSITION. CALL LIGHT WITHIN REACH. WILL CONTINUE TO MONITOR PT.
--- NOTE | 2018-05-11 20:35 | NUR ---
PT STATES, "CAN YOU HELP ME? I WANT TO SLEEP." ACCORDING TO PT HE IS HAVING TROUBLE SLEEPING AT THIS TIME. WILL GIVE PT MEDICATION TO AID WITH SLEEP.
--- NOTE | 2018-05-11 21:39 | NUR ---
PT ABLE TO FALL ASLEEP. DOES NOT APPEAR TO BE IN ANY DISTRESS AT THIS TIME. SR ON MONITOR. BED AT LOW POSSIBLE POSITION. ALL SAFETY PRECAUTIONS ARE IN PLACE. WILL CONTINUE TO MONITOR PT.
[2018-05-12] MEDS: PIPER/TAZO 3.375GM/D5W PREMIX 50 ML IV SCH ×4 (00:32→17:43)
[2018-05-12] MEDS: METOCLOPRAMIDE 10 MG/2 ML INJ VIAL IVP SCH ×4 (00:35→17:42)
--- NOTE | 2018-05-12 00:47 | NUR ---
VS STABLE. NO CHANGE IN CONDITION. PT ASLEEP. PT ALSO ABLE TO TURN AND REPOSITION SELF. HOB KEPT AT 30 DEGREES. BED AT LOW POSSIBLE POSITION. VILLEGAS CATHETER DRAINING CLEAR AND YELLOW URINE. ALREADY EMPTIED VILLEGAS CATHETER AND HAD 2000ML URINE. WILL CONTINUE TO MONITOR PT.
--- NOTE | 2018-05-12 02:30 | NUR ---
PT ASKING IF THE DOCTOR IS HERE AND IF HE CAN GO HOME. INFORMED PT THAT DOCTOR WILL COME IN TO SEE HIM THIS MORNING AND HE SHOULD SLEEP IN THE MEANTIME. PT AGREED AND TRYING TO GO BACK TO SLEEP
[2018-05-12 04:00] VITALS: BP 156/80
--- NOTE | 2018-05-12 04:15 | NUR ---
PT AWAKE AT THIS TIME. NO CHANGE IN CONDITION. PT DOES NOT APPEAR TO BE IN ANY SIGNS OF DISTRESS OR EXPERIENCING ANY DISCOMFORT. HOB KEPT AT 30 DEGREES. BED AT LOW POSSIBLE POSITION. ALL SAFETY PRECAUTIONS ARE IN PLACE.
[2018-05-12] MEDS: BLOOD GLUCOSE MONITORING 1 DEV DEV FS SCH ×4 (06:45→20:38)
--- NOTE | 2018-05-12 07:25 | NUR ---
RECEIVED REPORT FROM HAIRSPRING STUDDER RN. PT RESTING IN BED AWAKE. A/O X2. VERBALIZES NEEDS. SR ON MONITOR. BP WNL ON MONITOR. NOTED WITH LABORED BREATHING. KEPT HOB ELEVATED. ON OXYMIZER AT 10 LTR/MIN [id number] %. SKIN DRY AND WARM TO TOUCH. NG TUBE ON RIGHT NARES. POSITIVE PLACEMENT. RESIDUAL 0. VITAL AF RUNNING AT 70 ML/HR. LUNGS WHEEZING ON AUSCULTATION. ABDOMEN LARGE, FIRM AND NONTENDER. ACTIVE BOWEL SOUND. EDEMATOUS BOTH UPPER EXTREMITIES. PERIPHERAL LINE ON RIGHT FOREARM. NS RUNNING AT 5 ML/HR FOR KVO. OPEN WOUND ON LLE. COVERED WITH DRESSING. CALL LIGHT WITHIN REACH. BED IN LOW POSITION LOCKED. WILL CONTINUE TO MONITOR.
[2018-05-12] MEDS: IPRATROPIUM 0.02% 0.5 MG/2.5 ML NEBU INH PRN ×3 (07:26→15:49)
[2018-05-12] MEDS: ALBUTEROL 0.083% 2.5 MG/3 ML NEBU INH PRN ×3 (07:26→15:49)
--- NOTE | 2018-05-12 07:26 | NUR ---
AWAKE AND ALERT RESPONSIVE TO CHEESE MAKER VERBAL COMMANDS PATIENT PRESENTING INCREASED SOB ASSESSMENT DONE HHN PRN THERAPY GIVEN AT THIS TIME REVIEWED FINESSE ORDER WITH CHAD/MARY TO GIVE AT 0800 SATURATION 99% ON SUPPLEMENTAL OXYGEN AT 10 LPM VIA OXYMIZER POST HHN THERAPY TITRATED FIO2 TO 9 LPM CHAD/RN NOTIFIED [facility] [employer]P[facility] V60 BIPAP AT BEDSIDE Addendum: 05/12/18 at 0758 by Sudheer Browning RT AMBU BAG NOTED AT HEAD OF BED
[2018-05-12] MEDS: VANCOMYCIN 1GM/DEXT 5% PREMIX 200 ML IV SCH ×3 (07:28→22:54)
[2018-05-12 08:00] VITALS: BP 147/72
[2018-05-12] MEDS: FUROSEMIDE 40 MG/4 ML VIAL IVP SCH ×2 (08:58→20:39)
[2018-05-12] MEDS: PANTOPRAZOLE 40 MG INJ VIAL IVP SCH (08:59)
[2018-05-12] MEDS: LACTOBACILLUS RHAMNOSUS GG 1 EACH CAP PO SCH (08:59)
[2018-05-12] MEDS: FLUCONAZOLE 200 MG/NS PREMIX 100 ML IV SCH (09:02)
--- NOTE | 2018-05-12 11:26 | NUR ---
SLEEPING IN BED COMFORTABLY AT THIS TIME. VS WNL.
[2018-05-12] MEDS: INSULIN LISPRO SLIDING SCALE 100 UNITS/ML VIAL SUBQ PRN ×2 (11:38→16:33)
--- NOTE | 2018-05-12 11:45 | NUR ---
PT C/O PAIN AT IV SITE ON RIGHT FOREARM. DC'D IV LINE ON RIGHT. STARTED NEW LINE ON LEFT FOREARM.
[2018-05-12 12:00] VITALS: BP 139/79
--- NOTE | 2018-05-12 12:00 | NUR ---
AWAKE AND ALERT RESPONSIVE PATIENT PRESENTING WITH LABORED BREATHING WITH RESPIRATION RATE AT 28 BPM REVIEWED CXR DATED 05/12/2018 HHN PRN THERAPY GIVEN AT THIS TIME SATURATION 98% ON SUPPLEMENTAL OXYGEN AT 9 LPM VIA OXYMIZER POST HHN THERAPY TITRATED FIO2 TO 8 LPM BARBARA NOTIFIED Addendum: 05/12/18 at 1226 by Sudheer Browning RT ENCOURAGED PATIENT FOR INTERMITTENT DEEP BREATHING AND COUGH DURING HHN THERAPY TO FACILITATE SECRETION REMOVAL FROM BILATERAL UPPER LOBES
--- NOTE | 2018-05-12 12:11 | NUR ---
RT AT BEDSIDE.
--- NOTE | 2018-05-12 12:52 | NUR ---
SEEN BY DR. PLATT. SAID PT NOT READY TO BE DISCHARGE FROM HOSPITAL AT THIS TIME. HAD SISTER TO TALK WITH DOCTOR ABOUT SOCIAL SERVICE FOR PLACEMENT.
[2018-05-12] MEDS: SKINTEGRITY HYDROGEL TP SCH (13:55)
--- NOTE | 2018-05-12 13:55 | NUR ---
WOUND CARE PROVIDED. CHANGED DRESSING. PT RESTING IN BED COMFORTABLY. NO CHANGE IN CONDITION. WILL CONTINUE TO MONITOR.
--- NOTE | 2018-05-12 14:17 | NUR ---
FAXED CONCURRENT REVIEW TO [facility] [phone] PHONE [phone] ALFONZO
--- NOTE | 2018-05-12 14:44 | NUR ---
NOTED WITH ELEVATED BODY TEMPERATURE 100.1. EXTRA CLOTHES REMOVED. COLD SPONGING PROVIDED. WILL MEDICATE WITH TYLENOL.
[2018-05-12] MEDS: ACETAMINOPHEN 325 MG TAB PO PRN (14:47)
--- NOTE | 2018-05-12 14:50 | NUR ---
CARE PROVIDED NEEDED. KEPT PT CLEAN AND DRY.
--- NOTE | 2018-05-12 14:57 | NUR ---
PHYSICAL THERAPIST BOSTON AT BEDSIDE FOR PT ILIANA.
--- NOTE | 2018-05-12 15:06 | NUR ---
DC'D VILLEGAS CATHETER ORDER.
--- NOTE | 2018-05-12 15:42 | NUR ---
ON CONTINUOUS COLD SPONGING. RT AT BEDSIDE.
--- NOTE | 2018-05-12 15:49 | NUR ---
ASLEEP RESTING WELL PRESENTING WITH SOB WITH RESPIRATION AT 28 BPM HHN PRN THERAPY GIVEN ENCOURAGED PATIENT WITH INTERMITTENT DEEP BREATH AND COUGH STRONG NPC SATURATION 97% ON SUPPLEMENTAL OXYGEN AT 8 LPM VIA OXYMIZER POST HHN THERAPY TITRATED FIO2 TO 7 LPM CHAD/RN NOTIFIED
[2018-05-12 16:00] VITALS: BP 177/95
[2018-05-12] MEDS: cloNIDine 0.1 MG TAB PO PRN (16:07)
[2018-05-12] MEDS: LORazepam 2 MG/ML VIAL IVP PRN (16:22)
--- NOTE | 2018-05-12 16:28 | NUR ---
CALLED DR GERSON RAPP AT [facility] TO REVIEW PATIENT STATUS, CXR IMPRESSION DATED 05/12/2018 AND HHN THERAPY FREQUENCY KASHIF (OFFICE) WILL HAVE MD RETURN CALL
--- NOTE | 2018-05-12 16:35 | NUR ---
RETURN CALL FROM DR GERSON BENAVIDES TO REVIEW NOTED AT 0484 NEW ORDERS: CHANGE HHH TO Q6 ALBUTEROL + Q4PRN FOR SOB/WHEEZE
--- NOTE | 2018-05-12 16:38 | NUR ---
DR. PLATT MADE AWARE ABOUT HIGH BP 172/82 AND CLONIDINE ADMINISTRATION. ORDERED LISINOPRIL 20 MG STAT AND DAILY. WILL FOLLOW UP ON ORDER.
[2018-05-12] MEDS ORDERED: ALBUTEROL 0.083% 2.5 MG/3 ML NEBU INH PRN (16:45)
--- NOTE | 2018-05-12 16:54 | NUR ---
[facility] V60 BIPAP TO MASK AT BEDSIDE FOR PRN SOB STATUS
[2018-05-12] MEDS ORDERED: LISINOPRIL 20 MG TAB PO SCH (17:00)
--- NOTE | 2018-05-12 17:13 | NUR ---
TEMPERATURE DECREASED TO 97.7. PT APPEARS TO BE RELAXED. LYING IN BED.
--- NOTE | 2018-05-12 17:33 | NUR ---
PHYSICAL THERAPY CO-SIGN The Physical Therapy Progress Notes documented by [employer] have been reviewed. Reviewed/Co-Signed by: Ana Groves PT Documentation Done by:BOSTON REYES PTA PPC REVIEWED W/ CARLOS ENRIQUE Addendum: 05/12/18 at 1734 by Ana Groves PT Amended: Links added.
--- NOTE | 2018-05-12 17:52 | NUR ---
PT VOIDED FREELY. USES URINAL. DENIES BURNING SENSATION OR PAIN. DENIES ANY ABDOMINAL DISCOMFORT AT THIS TIME.
--- NOTE | 2018-05-12 18:33 | NUR ---
PT SLEEPING IN BED COMFORTABLY. CONTINUE ON OXIMIZER. SATURATING 100%. BP 149/82. WILL CONTINUE TO MONITOR.
[2018-05-12] MEDS: ALBUTEROL 0.083% 2.5 MG/3 ML NEBU INH SCH (18:56)
--- NOTE | 2018-05-12 19:14 | NUR ---
ENDORSED TO AUTOMOBILE MECHANIC RADIATOR RN FOR CONTINUITY OF CARE. PT ON STABLE CONDITION.
--- NOTE | 2018-05-12 19:15 | NUR ---
RECEIVED REPORT FROM MORNING RN FOR CONTINUITY OF CARE. VS STABLE AT THIS TIME. PT AFEBRILE. DOES NOT APPEAR TO BE IN ANY PAIN OR IN ANY DISCOMFORT. PERRL. ABLE TO MAKE NEEDS KNOWN AND FOLLOW COMMANDS. LUNG SOUNDS CLEAR. PT ON OXIMIZER AT 7L/MIN. NO SOB OR SIGNS OF RESPIRATORY DISTRESS NOTED. S1+S2 HEARD. PULSES ARE PALPABLE IN ALL EXTREMITIES. SR ON MONITOR. ABDOMEN ROUND, SOFT AND NONDISTENDED. BS ACTIVE IN ALL QUADRANTS. NGT THROUGH RIGHT NARES CONNECTED TO FEEDING. PT HAS VITAL AF 70ML/HR. NO RESIDUAL NOTED AT THIS TIME. PT ABLE TO USE URINAL WITH ASSISTANCE. PT ABLE TO TURN AND REPOSITION SELF. PT HAS OPEN WOUND ON LEFT LOWER EXTREMITY. PT HAS PERIPHERAL IV ACCESS 22G ON LEFT FOREARM THAT IS PATENT, INTACT AND ASYMPTOMATIC. HOB KEPT AT 30 DEGREES. BED AT LOW POSSIBLE POSITION. ALL SAFETY PRECAUTIONS ARE IN PLACE. WILL CONTINUE TO MONITOR PT.
--- NOTE | 2018-05-12 19:20 | NUR ---
DR. MONTOAY AT BEDSIDE TO SEE PT. RECEIVED NO NEW ORDERS.
[2018-05-12 20:00] VITALS: BP 148/102
--- NOTE | 2018-05-12 22:10 | NUR ---
VS STABLE AT THIS TIME. NO CHANGE IN CONDITION AT THIS TIME. PT STILL ON OXIMIZER AT 7L/MIN. NGT TO FEEDING. KEPT HOB AT 30 DEGREES. ALL SAFETY PRECAUTIONS ARE IN PLACE. WILL CONTINUE TO MONITOR PT.
[2018-05-13] VITALS: BP 167/92
[2018-05-13] MEDS: ALBUTEROL 0.083% 2.5 MG/3 ML NEBU INH SCH ×4 (00:32→19:07)
[2018-05-13] MEDS: METOCLOPRAMIDE 10 MG/2 ML INJ VIAL IVP SCH ×4 (00:48→18:01)
[2018-05-13] MEDS: PIPER/TAZO 3.375GM/D5W PREMIX 50 ML IV SCH ×4 (00:48→18:01)
--- NOTE | 2018-05-13 01:28 | NUR ---
PT ASLEEP AT THIS TIME. DOES NOT APPEAR TO BE IN ANY SIGN OF DISTRESS OR IN ANY DISCOMFORT. PT ABLE TO REPOSITION SELF AND ABLE TO USE URINAL. KEPT HOB AT 30 DEGREES. ALL SAFETY PRECAUTIONS IN PLACE. WILL CONTINUE TO MONITOR PT.
[2018-05-13] MEDS: cloNIDine 0.1 MG TAB PO PRN (02:15)
[2018-05-13 04:00] VITALS: BP 150/72
--- NOTE | 2018-05-13 04:10 | NUR ---
MORNING CARE PROVIDED TO PT. PT ABLE TO HELP IN TURNING AND REPOSITIONING. PT TOLERATED ACTIVITY WELL. NO TUBE FEEDING RESIDUAL NOTED AT THIS TIME. PT STATES HE SLEPT WELL. HOB KEPT AT 30 DEGREES. BED AT LOW POSSIBLE POSITION. ALL SAFETY PRECAUTIONS ARE IN PLACE. WILL CONTINUE TO MONITOR PT.
--- NOTE | 2018-05-13 05:45 | NUR ---
CURRENTLY NO CHANGE IN CONDITION. PT STILL ASLEEP AT THIS TIME. PT DOES NOT APPEAR TO BE IN PAIN OR IN ANY DISCOMFORT. STILL TOLERATING TUBE FEEDING WELL AT THIS TIME. ALL SAFETY PRECAUTIONS ARE IN PLACE. VS STABLE. WILL CONTINUE TO MONITOR PT.
[2018-05-13 06:09] LABS: BASOPHILS # (AUTO) 0.1 K/uL (0.00-0.22); BASOPHILS % (AUTO) 1.3 % (0.0-2.0); HEMATOCRIT 26.7 % (36-52); HEMOGLOBIN 9.1 g/dL (12.0-18.0); LYMPHOCYTES # (AUTO) 1.2 K/uL (2.0-11.5); LYMPHOCYTES % (AUTO) 11.7 % (20.5-51.1); MEAN CORPUSCULAR HEMOGLOBIN 32 pg (27-31); MEAN CORPUSCULAR HGB CONC 34 g/dL (33-37); MEAN CORPUSCULAR VOLUME 93.8 fL (80-94); MONOCYTES # (AUTO) 1.1 K/uL (0.8-1.0); MONOCYTES % (AUTO) 10.9 % (1.7-9.3); NEUTROPHILS # (AUTO) 7.9 K/uL (1.8-7.7); NEUTROPHILS % (AUTO) 76.1 % (42.2-75.2); PLATELET COUNT (AUTO) 451 K/uL (140-450); RED BLOOD CELL COUNT(AUTO) 2.84 MIL/uL (4.20-6.10); RED CELL DISTRIBUTION WIDTH 13.6 % (11.6-13.7); WHITE BLOOD COUNT (AUTO) 10.3 K/uL (4.8-10.8)
[2018-05-13] MEDS: BLOOD GLUCOSE MONITORING 1 DEV DEV FS SCH ×4 (06:30→20:16)
[2018-05-13] MEDS: INSULIN LISPRO SLIDING SCALE 100 UNITS/ML VIAL SUBQ PRN ×2 (06:31→11:35)
[2018-05-13 06:47] LABS: ANION GAP 4.9 (8-16); CARBON DIOXIDE 34.6 mmol/L (21-32); CREATININE 0.7 mg/dL (0.7-1.3); POTASSIUM 3.5 mmol/L (3.5-5.1)
--- NOTE | 2018-05-13 07:08 | NUR ---
REPORT GIVEN TO MORNING RN FOR CONTINUITY OF CARE. PT IN STABLE CONDITION AT THIS TIME.
--- NOTE | 2018-05-13 07:22 | NUR ---
CALLED PHARMACY AND SPOKE WITH BERNARDA, REPORTED VANCO TROUGH AND ACCORDING TO HIM GIVE THE VANCO DOSE DUE AT 0700.
[2018-05-13] MEDS: VANCOMYCIN 1GM/DEXT 5% PREMIX 200 ML IV SCH ×3 (07:27→22:49)
--- NOTE | 2018-05-13 07:37 | NUR ---
RECEIVED REPORT FROM NIGHT NURSE. PT A&Ox4. PERRL. SKIN WARM DRY. DRESSINGS ON LLE DRY AND INTACT. LUNG SOUND CLEAR, DIMINISHED IN BASES. S1S2 HEARD. BOWEL SOUNDS ACTIVE. IV PATENT FLUSHED, ASYMPTOMATIC. NG TUBE IN RIGHT NARES TUBE FEEDING RUNNING AT 70MLS/HR MINIMAL RESIDUAL NOTED. NSR ON MONITOR. WILL CONTINUE TO MONITOR.
[2018-05-13 08:00] VITALS: BP 147/79
[2018-05-13] MEDS: LACTOBACILLUS RHAMNOSUS GG 1 EACH CAP PO SCH (08:19)
[2018-05-13] MEDS: LISINOPRIL 20 MG TAB PO SCH (08:20)
[2018-05-13] MEDS: PANTOPRAZOLE 40 MG INJ VIAL IVP SCH (08:20)
[2018-05-13] MEDS: FUROSEMIDE 40 MG/4 ML VIAL IVP SCH ×2 (08:21→21:12)
[2018-05-13] MEDS: FLUCONAZOLE 200 MG/NS PREMIX 100 ML IV SCH (09:24)
--- NOTE | 2018-05-13 09:39 | NUR ---
SPEECH THERAPIST PREFORMED SWALLOW EVALUATION. WILL FOLLOW UP
--- NOTE | 2018-05-13 10:11 | NUR ---
BUSINESS RELATIONSHIP MANAGER note (bedside swallow re-evaluation) [phone]. Bedside swallow re-evaluation completed, please see report for details. BUSINESS RELATIONSHIP MANAGER provided pt with education regarding purpose of re-evaluation and rationale for recommendations. Pt did not appear to fully benefit from education provided. No family present at this time. BUSINESS RELATIONSHIP MANAGER was informed by nursing that yesterday (05/12/2018), pt was given ice chips and a medication by mouth and it was reported that pt did not cough and "swallowed fine". BUSINESS RELATIONSHIP MANAGER provided nursing with education that pt does not have a consistent cough response and had to be cued to cough by BUSINESS RELATIONSHIP MANAGER when pt's O2 sats demonstrated decrease and pt's respiratory rate increased and pt's vocal quality/breath sounds decreased. So pt's cough response is not yet a reliable indicator of pt's ability to swallow safely. BUSINESS RELATIONSHIP MANAGER provided education to nursing that no further PO was recommended at this time and that the safest method of increasing pt's oral comfort during NPO status was via careful oral cares only. Nursing verbalized understanding at this time. Recommend: 1) STRICT NPO (careful oral cares only) 2) continue alternative method(s) of nutrition/hydration/medication vs comfort measures, as appropriate 3) no further BUSINESS RELATIONSHIP MANAGER intervention indicated at this time. Physician may reorder once pt's respiratory status stabilizes, pt able to maintain WNL respiration rates for decreased aspiration risks, and pt's CXR demonstrates notable clearing of "bilateral middle and upper lobe consolidation" (per 05/12/2018 CXR report), as appropriate. G-codes: [id number] [id number] NOMS level 1. BUSINESS RELATIONSHIP MANAGER d/w RN (Arabella) prior to and following bedside swallow re-evaluation completion, and d/w lithopone charger following bedside swallow re-evaluation completion.
[2018-05-13 12:00] VITALS: BP 145/75
[2018-05-13] MEDS: SKINTEGRITY HYDROGEL TP SCH (13:14)
--- NOTE | 2018-05-13 13:25 | NUR ---
RT AT BEDSIDE. PATIENT GETTING BREATHING TREATMENT.
--- NOTE | 2018-05-13 14:30 | NUR ---
PHYSICAL THERAPY WORKING WITH PATIENT.
--- NOTE | 2018-05-13 14:45 | NUR ---
PATIENTS NG TUBE DISPLACED. PATIENT REMOVED IT.
--- NOTE | 2018-05-13 15:20 | NUR ---
PATIENT TRANSFERRED TO TELE LINO SWANN FOR CONTINUITY OF CARE. PT ALERT AND STABLE UPON ARRIVAL.
--- NOTE | 2018-05-13 15:31 | NUR ---
FAXED CONCURRENT REVIEW INCLUDING SWALLOW EVAL TO [facility] [phone] PHONE [phone] LONNIE
--- NOTE | 2018-05-13 15:32 | NUR ---
PHYSICAL THERAPY CO-SIGN The Physical Therapy Progress Notes documented by Mining Machinery Assembler have been reviewed. I CONCUR W/DIRECTOR OF CUSTOMER SERVICE NOTE; CONT PER TX PLAN Reviewed/Co-Signed by: Vernell Stapleton, PT Documentation Done by: BOSTON REYES, CARLOS ENRIQUE Addendum: 05/13/18 at 1533 by Vernell Stapleton PT Amended: Links added.
--- NOTE | 2018-05-13 15:42 | NUR ---
PATIENT RECEIVED FROM ICU. PATIENT AWAKE, ALERT AND ORIENTED. PATIENT ON 4L O2 VIA OXYMIZER. NO S/S OF DISTRESS AT THIS TIME. PATIENT ON TELE MONITORING. BED LOWERED WITH CALL LIGHT WITHIN REACH. WILL CONTINUE TO MONITOR
[2018-05-13 16:00] VITALS: BP 149/71
--- NOTE | 2018-05-13 16:48 | NUR ---
05/13/18 RD FOLLOW UP COMPLETED PLEASE REFER TO NUTRITION PROGRESS NOTE UNDER CARE ACTIVITY FOR ESTIMATED NUTRITION NEEDS. RD RECOMMENDATIONS: 1. CONTINUE VITAL AF 1.2 @ 70ML/H WITH 170 ML FLUSH Q4H TOLERATED --NUTRITION SUPPORT PROVIDES: 2016 KCAL, 126 GM PRO, AND 2042 ML FLUID. THIS IS MEETING 98% OF ESTIMATED KCAL NEEDS AND 100% PATIENT ESTIMATED PROTEIN NEEDS 2. D/T FAILED SWALLOW EVAL, CONSIDER G-TUBE PLACEMENT FOR LONG-TERM NUTRITION NEEDS 2. RD WILL F/U 2-3 DAYS; HIGH RISK. RABIA GIBSON RD
--- NOTE | 2018-05-13 17:30 | NUR ---
16F NGT INSERTED IN THE LEFT NARES. WAITING FOR XRAY RESULTS TO VERIFY PLACEMENT
--- NOTE | 2018-05-13 19:25 | NUR ---
PATIENT REPORT GIVEN AT BEDSIDE. PATIENT ENDORSED IN STABLE CONDITION
--- NOTE | 2018-05-13 19:25 | NUR ---
RECEIVED PT REPORT AT PT BEDSIDE FROM DAY SHIFT NURSE. PT IN STABLE CONDITION. PT IS A/O X4. PT HAS NG TUBE IN L NARE WITH CONTINUOUS TUBE FEEDING. IV ACCESS IN L FA 22G. IV IS PATENT AND INTACT. PT HAS OXIMIZER 4L. O2 SATURATION IS STABLE. PT HAS L LOWER LEG ULCER COVERED WITH DRESSING. DRESSING IS DRY AND INTACT. PT HAS NO C/O PAIN AT THIS TIME. BED IS LOCKED, LOW POSITION AND SIDE RAILS UP X2. BOARD UPDATED. WILL CONTINUE TO MONITOR PT.
[2018-05-13 20:00] VITALS: BP 140/58
--- NOTE | 2018-05-13 20:16 | NUR ---
BS CHECKED, 136. NO COVERAGE NEEDED PER MD ORDERS.
--- NOTE | 2018-05-13 21:12 | NUR ---
ORDERED MEDICATIONS ADMINISTERED. PT TOLERATED WELL. WILL CONTINUE TO MONITOR.
--- NOTE | 2018-05-13 22:49 | NUR ---
SCHEDULED ABX ADMINISTERED. PT IN STABLE CONDITION. NO SIGNS OF DISTRESS. WILL CONTINUE TO MONITOR.
[2018-05-14] VITALS: BP 152/81
[2018-05-14] MEDS: PIPER/TAZO 3.375GM/D5W PREMIX 50 ML IV SCH ×5 (00:18→23:09)
[2018-05-14] MEDS: METOCLOPRAMIDE 10 MG/2 ML INJ VIAL IVP SCH ×5 (00:18→23:08)
--- NOTE | 2018-05-14 00:19 | NUR ---
ORDERED MEDICATION ADMINISTERED. PT TOLERATED WELL. RT AT BEDSIDE TO GIVE PT BREATHING TREATMENT.
[2018-05-14] MEDS: ALBUTEROL 0.083% 2.5 MG/3 ML NEBU INH SCH ×4 (00:27→19:05)
--- NOTE | 2018-05-14 03:02 | NUR ---
PT ASLEEP IN BED NO SIGNS OF DISTRESS. WILL CONTINUE TO MONITOR.
[2018-05-14 04:00] VITALS: BP 157/83
--- NOTE | 2018-05-14 05:08 | NUR ---
NO CHANGE IN CONDITION. ALL PT NEEDS ARE MET AT THIS TIME. WILL CONTINUE TO MONITOR.
--- NOTE | 2018-05-14 05:38 | NUR ---
BS CHECKED, 129. PER MD ORDERS NO COVERAGE NEEDED.
[2018-05-14] MEDS: BLOOD GLUCOSE MONITORING 1 DEV DEV FS SCH ×4 (06:05→20:02)
--- NOTE | 2018-05-14 06:09 | NUR ---
ORDERED MEDICATIONS ADMINISTERED. PT TOLERATED WELL. WILL CONTINUE TO MONITOR.
[2018-05-14 07:14] LABS: BASOPHILS % (AUTO) 0.6 % (0.0-2.0); HEMATOCRIT 26.3 % (36-52); LYMPHOCYTES # (AUTO) 1.1 K/uL (2.0-11.5); LYMPHOCYTES % (AUTO) 15.8 % (20.5-51.1); MEAN CORPUSCULAR HEMOGLOBIN 32 pg (27-31); MEAN CORPUSCULAR HGB CONC 34 g/dL (33-37); MEAN CORPUSCULAR VOLUME 93.7 fL (80-94); MONOCYTES # (AUTO) 0.9 K/uL (0.8-1.0); NEUTROPHILS % (AUTO) 70.6 % (42.2-75.2); PLATELET COUNT (AUTO) 505 K/uL (140-450); RED BLOOD CELL COUNT(AUTO) 2.81 MIL/uL (4.20-6.10); RED CELL DISTRIBUTION WIDTH 13.7 % (11.6-13.7); WHITE BLOOD COUNT (AUTO) 7.1 K/uL (4.8-10.8)
--- NOTE | 2018-05-14 07:22 | NUR ---
ENDORSED PT TO DAY SHIFT NURSE FOR CONTINUITY OF CARE. PT IN STABLE CONDITION.
--- NOTE | 2018-05-14 07:23 | NUR ---
RECEIVED REPORT FROM SLIPMAN NURSE, PATIENT IS IN BED RECEIVING BREATHING TREATMENT IN BED. PATIENT IS ORDERED TO BE ON 4L O2, AAX4, NO SIGNS OR SYMPTOMS OF PAIN OR RESPIRATORY DISTRESS. PATIENT HAS A 24 GA IV IN LFA AT 10ML/HR, AND A WOUND DRESSING, DRY AND INTACT ON LEFT LEG. PATIENT HAS AN NG TUBE IN PLACE AT LEFT NARES, RUNNING AT 50ML/HR, FALL PRECAUTIONS IN PLACE. BED IN LOWEST POSITION, CALL LIGHT WITHIN REACH, WILL CONTINUE TO MONITOR.
[2018-05-14 07:25] LABS: ANION GAP 4.6 (8-16); CREATININE 0.7 mg/dL (0.7-1.3); POTASSIUM 3.6 mmol/L (3.5-5.1)
[2018-05-14 07:32] LABS: MAGNESIUM 2.1 mg/dL (1.8-2.4); PHOSPHORUS 3.6 mg/dL (2.5-4.9)
[2018-05-14 08:00] VITALS: BP 145/72
[2018-05-14] MEDS: VANCOMYCIN 1GM/DEXT 5% PREMIX 200 ML IV SCH ×3 (08:21→23:08)
[2018-05-14] MEDS: PANTOPRAZOLE 40 MG INJ VIAL IVP SCH (08:22)
[2018-05-14] MEDS: FUROSEMIDE 40 MG/4 ML VIAL IVP SCH ×2 (08:22→20:22)
[2018-05-14] MEDS: LISINOPRIL 20 MG TAB PO SCH (08:22)
[2018-05-14] MEDS: LACTOBACILLUS RHAMNOSUS GG 1 EACH CAP PO SCH (08:23)
--- NOTE | 2018-05-14 09:41 | NUR ---
RECEIVED REPORT FROM UNDRAPED ARTIST MODEL NURSE, PATIENT IS IN BED RECEIVING BREATHING TREATMENT IN BED. PATIENT IS ORDERED TO BE ON 4L O2, AAX4, NO SIGNS OR SYMPTOMS OF PAIN OR RESPIRATORY DISTRESS. PATIENT HAS A 24 GA IV IN LFA AT 10ML/HR, AND A WOUND DRESSING, DRY AND INTACT ON LEFT LEG. PATIENT HAS AN NG TUBE IN PLACE AT LEFT NARES, RUNNING AT 50ML/HR, FALL PRECAUTIONS IN PLACE. BED IN LOWEST POSITION, CALL LIGHT WITHIN REACH, WILL CONTINUE TO MONITOR. Addendum: 05/14/18 at 0953 by Fanta Slater RN WRONG TIME ENTRY
[2018-05-14] MEDS: FLUCONAZOLE 200 MG/NS PREMIX 100 ML IV SCH (10:05)
[2018-05-14 12:00] VITALS: BP 140/72
[2018-05-14 12:06] LABS: ANION GAP 1.8 (8-16); CARBON DIOXIDE 37.7 mmol/L (21-32); CREATININE 0.8 mg/dL (0.7-1.3); POTASSIUM 3.5 mmol/L (3.5-5.1)
[2018-05-14] MEDS: INSULIN LISPRO SLIDING SCALE 100 UNITS/ML VIAL SUBQ PRN (12:16)
--- NOTE | 2018-05-14 13:00 | NUR ---
CHANGED DRESSING SITE OR LEFT LOWER EXTREMITY ULCER, WOUND IS OPEN, SMALL AMOUNT OF DRAINAGE NOTED ON DRESSING, YELLOW TINT, NO FOUL ODOR NOTED, CLEANED, DRIED APPLIED HYDROGEL, AND DRESSING PER ORDER, PATIENT TOLERATED WELL. WILL CONTINUE TO MONITOR.
[2018-05-14] MEDS: SKINTEGRITY HYDROGEL TP SCH (13:27)
--- NOTE | 2018-05-14 13:39 | NUR ---
DECREASED FIO2 TO 3LPM OXYMIZER
--- NOTE | 2018-05-14 14:24 | NUR ---
PATIENT IN BED RESTING, NO SIGNS OF PAIN OR RESPIRATORY DISTRESS NOTED. BED IN LOWEST POSITION, CALL LIGHT WITHIN REACH. WILL CONTINUE TO MONITOR.
[2018-05-14] MEDS ORDERED: VANCOMYCIN PER PHARMACY MC PRN (15:55)
--- NOTE | 2018-05-14 15:58 | NUR ---
ADMINISTERED MEDICATIONS FOR PATIENT PER ORDER, PATIENT TOLERATED WELL. PATIENT IS RESTING IN BED, NO SIGNS OF PAIN OR DISCOMFORT NOTED, BED IN LOWEST POSITION, CALL LIGHT WITHIN REACH, WILL CONTINUE TO MONITOR.
[2018-05-14 16:00] VITALS: BP 149/74
--- NOTE | 2018-05-14 19:17 | NUR ---
PATIENT IS RECEIVING BREATHING TREATMENT AT BEDSIDE, PATIENT IS STABLE. ENDORSED CONTINUITY OF CARE TO PCB DESIGN ENGINEER NURSE.
--- NOTE | 2018-05-14 19:20 | NUR ---
RECEIVED PT. WITH BREATHING TREATMENT ON GOING. NGT IN PLACE . HOB UP FOR ASPIRATION PRECAUTIONS. AT THIS TIME 02 SAT 97% ON 02 AT 3LPM/NC. CARE PLANS FOR THE NIGHT DISCUSSED WITH PT. CALL LIGHT WITH IN REACH. BED ALARM ON. ENCOURAGED TO CALL FOR ANY HELP HE MAY NEED. A/O X 4. ROM X 4. FOR REPEAT SWALLOW EVALUATION ORDERED.
[2018-05-14 20:13] VITALS: BP 153/76
[2018-05-14] MEDS ORDERED: POTASSIUM CHL 20MEQ/D5-NS 1,000 ML IV SCH (22:00)
[2018-05-14] MEDS ORDERED: NACL 0.9% 500 ML IV ONE (22:00)
--- NOTE | 2018-05-14 22:15 | NUR ---
ENDORSED TO THE NEXT RN FOR CONTINUITY OF CARE.
--- NOTE | 2018-05-14 22:16 | NUR ---
RECEIVED REPORT FROM NURSE AMEZCUA RN FOR CONTINUITY OF CARE, PT IN STABLE CONDITION, NO DISTRESS NOTED, CALL LIGHT WITHIN REACH, WILL CONTINUE TO MONITOR.
--- NOTE | 2018-05-14 22:21 | NUR ---
CALLED DR. MONTOYA REGARDING VERIFICATION OF NEW ORDERS, STATED THAT TO D/C ORDERS. PT STABLE, NO DISTRESS NOTED, CALL LIGHT WITHIN REACH, WILL CONTINUE TO MONITOR.
--- NOTE | 2018-05-14 23:09 | NUR ---
CHECKED ON PT, PT SLEEPING, NO DISTRESS NOTED, DUE MEDICATION ADMINISTERED, PT TOLERATED WELL, V/S TAKEN, WITHIN PT BASELINE, CALL LIGHT WITHIN REACH, WILL CONTINUE TO MONITOR.
[2018-05-15] VITALS: BP 153/70
[2018-05-15] MEDS: ALBUTEROL 0.083% 2.5 MG/3 ML NEBU INH SCH ×4 (01:00→19:18)
--- NOTE | 2018-05-15 01:41 | NUR ---
pt asleep, amd he wants to sleep, no sob or distress noted
--- NOTE | 2018-05-15 02:10 | NUR ---
CHECKED ON PT, PT SLEEPING, NO DISTRESS NOTED, CALL LIGHT WITHIN REACH, WILL CONTINUE TO MONITOR.
[2018-05-15 04:00] VITALS: BP 151/73
--- NOTE | 2018-05-15 04:11 | NUR ---
CHECKED ON PT, PT SLEEPING, NO DISTRESS NOTED, V/S TAKEN, WITHIN PT BASELINE, CALL LIGHT WITHIN REACH, WILL CONTINUE TO MONITOR.
[2018-05-15] MEDS: PIPER/TAZO 3.375GM/D5W PREMIX 50 ML IV SCH ×3 (05:02→18:27)
[2018-05-15] MEDS: METOCLOPRAMIDE 10 MG/2 ML INJ VIAL IVP SCH ×3 (05:48→18:27)
[2018-05-15] MEDS: VANCOMYCIN 1GM/DEXT 5% PREMIX 200 ML IV SCH ×3 (06:00→23:21)
[2018-05-15] MEDS: BLOOD GLUCOSE MONITORING 1 DEV DEV FS SCH ×4 (06:07→20:53)
[2018-05-15 06:34] LABS: BASOPHILS % (AUTO) 0.4 % (0.0-2.0); HEMATOCRIT 29.7 % (36-52); LYMPHOCYTES # (AUTO) 1.1 K/uL (2.0-11.5); LYMPHOCYTES % (AUTO) 15.3 % (20.5-51.1); MEAN CORPUSCULAR HEMOGLOBIN 32 pg (27-31); MEAN CORPUSCULAR HGB CONC 34 g/dL (33-37); MEAN CORPUSCULAR VOLUME 94.1 fL (80-94); MONOCYTES % (AUTO) 13.5 % (1.7-9.3); NEUTROPHILS # (AUTO) 5.2 K/uL (1.8-7.7); NEUTROPHILS % (AUTO) 70.8 % (42.2-75.2); PLATELET COUNT (AUTO) 531 K/uL (140-450); RED BLOOD CELL COUNT(AUTO) 3.15 MIL/uL (4.20-6.10); RED CELL DISTRIBUTION WIDTH 14.1 % (11.6-13.7); WHITE BLOOD COUNT (AUTO) 7.3 K/uL (4.8-10.8)
[2018-05-15 07:05] LABS: ANION GAP 3.1 (8-16); CARBON DIOXIDE 34.6 mmol/L (21-32); CREATININE 0.8 mg/dL (0.7-1.3); MAGNESIUM 2.1 mg/dL (1.8-2.4); PHOSPHORUS 3.3 mg/dL (2.5-4.9); POTASSIUM 3.7 mmol/L (3.5-5.1)
--- NOTE | 2018-05-15 07:30 | NUR ---
ENDORSED PT TO DAY SHIFT RAINA HERNANDEZ, PT STABLE, NO DISTRESS NOTED, CALL LIGHT WITHIN REACH.
--- NOTE | 2018-05-15 07:35 | NUR ---
RECEIVED REPORT FROM MONKEY BREEDER NURSE, PT IS RESTING IN BED, CURRENTLY RECEIVING A BREATHING TREATMENT, PT IS AAOX4, ON BEDREST, PT HAS IV ON HIS LEFT FA, PATENT, INTACT, FLUSHING WELL, PT USES BEDSIDE URINAL INDEPENDENTLY, NO S/S OF RESPIRATORY DISTRESS OR DISCOMFORT NOTED, DISCUSSED PLAN OF CARE WITH PT, PT VERBALIZED UNDERSTANDING, SAFETY/FALL PRECAUTIONS ARE IN PLACE, CALL LIGHT IS WITHIN REACH, WILL CONTINUE TO MONITOR.
[2018-05-15 08:00] VITALS: BP 148/72
[2018-05-15] MEDS: PANTOPRAZOLE 40 MG INJ VIAL IVP SCH (08:37)
[2018-05-15] MEDS: FUROSEMIDE 40 MG/4 ML VIAL IVP SCH ×2 (08:38→20:52)
[2018-05-15] MEDS: LACTOBACILLUS RHAMNOSUS GG 1 EACH CAP PO SCH (08:38)
[2018-05-15] MEDS: LISINOPRIL 20 MG TAB PO SCH (08:39)
--- NOTE | 2018-05-15 08:41 | NUR ---
DUE MEDICATIONS GIVEN, PT TOLERATED WELL, CALL LIGHT IS WITHIN REACH, WILL CONTINUE TO MONITOR.
[2018-05-15] MEDS ORDERED: PANTOPRAZOLE 40 MG INJ VIAL IVP SCH (09:00)
--- NOTE | 2018-05-15 10:03 | NUR ---
CALLED PHARMACY AND SPOKE TO BERNARDA. I LET HIM KNOW I WAS MISSING THE DIFLUCAN IVPB DUE AT 0900. PER BERNARDA HE WOULD GO AHEAD AND SEND IT OVER.
[2018-05-15] MEDS: FLUCONAZOLE 200 MG/NS PREMIX 100 ML IV SCH (10:11)
[2018-05-15 12:00] VITALS: BP 148/74
--- NOTE | 2018-05-15 12:00 | NUR ---
PT IS RESTING IN BED, WATCHING TV, NO S/S OF RESPIRATORY DISTRESS OR DISCOMFORT NOTED, ALL NEEDS MET AT THIS TIME. CALL LIGHT WITHIN REACH.
[2018-05-15] MEDS: SKINTEGRITY HYDROGEL TP SCH (13:00)
--- NOTE | 2018-05-15 13:00 | NUR ---
CHANGED DRESSING FOR PATIENT, PATIENT TOLERATED WELL. BED IN LOWEST POSITION, CALL CLEMENS WITHIN REACH, WILL CONTINUE TO MONITOR.
--- NOTE | 2018-05-15 14:31 | NUR ---
PT RESTING IN BED, SEMI FOWLERS POSITION, NO S/S OF RESPIRATORY DISTRESS OR DISCOMFORT NOTED, CALL LIGHT WITHIN REACH.
[2018-05-15 16:00] VITALS: BP 130/68
--- NOTE | 2018-05-15 19:10 | NUR ---
ENDORSED PT TO SENIOR DOT NET DEVELOPER NURSE FOR CONTINUITY OF CARE. PT STABLE AT THIS TIME.
--- NOTE | 2018-05-15 19:11 | NUR ---
RECEIVED REPORT FROM DAY SHIFT RN FOR CONTINUITY OF CARE. PT IS A/OX4, ON 2L O2 VIA OXIMIZER. PT HAS LLE ULCER. PT HAS 22G IV TO LEFT FOREARM, ASYMPTOMATIC, INTACT AND PATENT. DISCUSSED PLAN OF CARE WITH PT, PT VERBALIZED UNDERSTANDING. VITAL SIGNS WITHIN NORMAL LIMITS. PT STABLE, NO SIGNS OF DISTRESS NOTED AT THIS TIME. BED IN LOWEST POSITION, BED ALARM ON. CALL LIGHT WITHIN REACH, WILL CONTINUE TO MONITOR.
[2018-05-15 20:00] VITALS: BP 147/66
[2018-05-15] MEDS: ACETAMINOPHEN 325 MG TAB PO PRN (20:52)
--- NOTE | 2018-05-15 21:03 | NUR ---
ADMINISTERED SCHEDULED MEDICATIONS, PT TOLERATED WELL. PT DIAPHORETIC AND HAD ME CHECK TEMPERATURE AGAIN, TEMPERATURE 99.9 AND PT REQUESTED TYLENOL. ADMINISTERED TYLENOL WELL.
--- NOTE | 2018-05-15 23:33 | NUR ---
PT STABLE, NO SIGNS OF DISTRESS NOTED AT THIS TIME. WILL CONTINUE TO MONITOR.
[2018-05-16] VITALS: BP 133/68
--- NOTE | 2018-05-16 | NUR ---
VITAL SIGNS WITHIN NORMAL LIMITS. PT STABLE, NO SIGNS OF DISTRESS NOTED AT THIS TIME. BED IN LOWEST POSITION, BED ALARM ON. CALL LIGHT WITHIN REACH, WILL CONTINUE TO MONITOR.
[2018-05-16] MEDS: PIPER/TAZO 3.375GM/D5W PREMIX 50 ML IV SCH ×3 (00:22→12:32)
[2018-05-16] MEDS: METOCLOPRAMIDE 10 MG/2 ML INJ VIAL IVP SCH ×3 (00:22→12:32)
[2018-05-16] MEDS: ALBUTEROL 0.083% 2.5 MG/3 ML NEBU INH SCH ×3 (00:51→13:50)
--- NOTE | 2018-05-16 02:18 | NUR ---
PT RESTING, NO SIGNS OF DISTRESS NOTED AT THIS TIME. BED IN LOWEST POSITION, BED ALARM ON. CALL LIGHT WITHIN REACH, WILL CONTINUE TO MONITOR.
[2018-05-16 04:00] VITALS: BP 125/66
--- NOTE | 2018-05-16 06:08 | NUR ---
GEORGE FROM LAB DRAWING [facility]. PT STABLE, NO SIGNS OF DISTRESS NOTED AT THIS TIME. BED IN LOWEST POSITION, BED ALARM ON. CALL LIGHT WITHIN REACH, WILL CONTINUE TO MONITOR.
[2018-05-16 06:10] LABS: BASOPHILS % (AUTO) 0.4 % (0.0-2.0); EOSINOPHILS % (AUTO) 0.1 % (0.0-4.0); HEMATOCRIT 30.1 % (36-52); HEMOGLOBIN 10.2 g/dL (12.0-18.0); LYMPHOCYTES # (AUTO) 1.1 K/uL (2.0-11.5); LYMPHOCYTES % (AUTO) 16.7 % (20.5-51.1); MEAN CORPUSCULAR HEMOGLOBIN 32 pg (27-31); MEAN CORPUSCULAR HGB CONC 34 g/dL (33-37); MEAN CORPUSCULAR VOLUME 93.6 fL (80-94); MONOCYTES % (AUTO) 14.5 % (1.7-9.3); NEUTROPHILS # (AUTO) 4.6 K/uL (1.8-7.7); NEUTROPHILS % (AUTO) 68.3 % (42.2-75.2); PLATELET COUNT (AUTO) 527 K/uL (140-450); RED BLOOD CELL COUNT(AUTO) 3.22 MIL/uL (4.20-6.10); WHITE BLOOD COUNT (AUTO) 6.7 K/uL (4.8-10.8)
[2018-05-16] MEDS: BLOOD GLUCOSE MONITORING 1 DEV DEV FS SCH ×3 (06:27→17:12)
[2018-05-16 06:29] LABS: ANION GAP 2.5 (8-16); CARBON DIOXIDE 36.3 mmol/L (21-32); CREATININE 0.9 mg/dL (0.7-1.3); POTASSIUM 3.8 mmol/L (3.5-5.1)
[2018-05-16 06:31] LABS: MAGNESIUM 2.2 mg/dL (1.8-2.4); PHOSPHORUS 3.3 mg/dL (2.5-4.9)
--- NOTE | 2018-05-16 06:35 | NUR ---
SPOKE TO JEROMY FROM OUTSIDE PHARMACY REGARDING [facility]. HE SAID TO LET OUR PHARMACY KNOW WHEN THEY OPEN.
--- NOTE | 2018-05-16 06:55 | NUR ---
CALLED PHARMACY AND THEY WERE OPEN THIS TIME, TOLD THEM ABOUT VANCO TROUGH AND HE SAID TO HOLD THE DOSE AND HE WOULD CALL BACK. GAVE HIM MY INFORMATION AND THE ONCOMING NURSE'S NAME, AND THE PHONE EXTENSION SHE WILL HAVE. WILL ENDORSE TO ONCOMING NURSE.
[2018-05-16] MEDS: VANCOMYCIN 1GM/DEXT 5% PREMIX 200 ML IV SCH (07:00)
--- NOTE | 2018-05-16 07:21 | NUR ---
ENDORSED PT TO DAY SHIFT RN FOR CONTINUITY OF CARE. PT IN STABLE CONDITION.
--- NOTE | 2018-05-16 07:23 | NUR ---
REPORT RECEIVED FROM POLICY VALUE CALCULATOR NURSE. PT LYING IN BED, AROUSABLE BY VOICE, VERBALLY RESPONSIVE, NO SIGNS OF DISTRESS. NGT FEEDING ONGOING. CALL LIGHT WITHIN REACH. WILL CONTINUE TO MONITOR.
[2018-05-16 08:00] VITALS: BP 152/79
--- NOTE | 2018-05-16 08:27 | NUR ---
PHYSICAL THERAPY CO-SIGN The Physical Therapy Progress Notes documented by Graphic Artist have been reviewed. I CONCUR W/HIV PREVENTION SPECIALIST NOTE; CONT PER TX PLAN Reviewed/Co-Signed by: Vernell Stapleton,PT Documentation Done by: DREA KEY PTA Addendum: 05/16/18 at 0828 by Vernell Stapleton PT Amended: Links added.
--- NOTE | 2018-05-16 08:30 | NUR ---
PT AT BEDSIDE.
[2018-05-16] MEDS: FUROSEMIDE 40 MG/4 ML VIAL IVP SCH (09:12)
[2018-05-16] MEDS: PANTOPRAZOLE 40 MG INJ VIAL IVP SCH (09:12)
[2018-05-16] MEDS: LACTOBACILLUS RHAMNOSUS GG 1 EACH CAP PO SCH (09:13)
[2018-05-16] MEDS: LISINOPRIL 20 MG TAB PO SCH (09:13)
[2018-05-16] MEDS: FLUCONAZOLE 200 MG/NS PREMIX 100 ML IV SCH (10:35)
--- NOTE | 2018-05-16 11:34 | NUR ---
WOUND CARE RE-EVALUATION NOTE: -LEFT LOWER LEG SKIN ALTERATION WITH LARGEST TO MEDIAL AREA 1X1X0.1 CM WOUND BEDS ARE PINK AND MOIST, NO ODOR, WOUND EDGE FLAT AND WELL DEFINED. -LLE ANTERIOR AREA SKIN ALTERATION HEALED PT. RESPONDING TO TX WELL, CONTINUE SAME INTERVENTIONS
--- NOTE | 2018-05-16 11:40 | NUR ---
FAXED CONCURRENT REVIEW TO [facility] [phone] PHONE [phone] ALFONZO
[2018-05-16 12:00] VITALS: BP 131/68
--- NOTE | 2018-05-16 12:07 | NUR ---
White Mixing Operator Note: I faxed inquiries to the following snfs contracted with [facility]: [facility] Counts Include 234 Beds At [facility] Adam Thibodeaux [facility] [place]
[2018-05-16] MEDS: SKINTEGRITY HYDROGEL TP SCH (13:00)
--- NOTE | 2018-05-16 13:34 | NUR ---
TIMBER FRAMER note (bedside swallow re-evaluation) [phone]. Bedside swallow re-evaluation completed, please see report for details. TIMBER FRAMER provided pt with education regarding purpose of re-evaluation and rationale for recommendations. Pt verbalized understanding and agreement with education provided at this time. No family present at this time. Recommend: 1) STRICT aspiration precautions (including pt must be FULLY awake/alert/upright for any PO intakes, alternate small/slow bites and sips, stop giving PO if pt becomes less alert/SOB/coughing, pt to PAUSE to breathe in between bites and sips) 2) 100% feeding supervision to ensure strict compliance with safe swallow strategies and aspiration precautions 3) mechanical soft chopped textures 4) thin liquids 5) continue alternative method(s) of nutrition/hydration/medication for minimum of 3 meals to ensure pt able to support his needs safely via PO before discontinuing alternative method(s) of nutrition/hydration/medication, as appropriate 6) TIMBER FRAMER to f/u for dysphagia/diet tolerance 2 x week x 1 week, as appropriate. G-codes: [id number] [id number] [facility] NOMS level 4. TIMBER FRAMER d/w RN ([facility]) prior to and following bedside swallow re-evaluation completion. TIMBER FRAMER posted safe swallow strategies sign above pt's HOB after going over it with pt.
[2018-05-16] MEDS ORDERED: FURO-570 PO (14:04)
[2018-05-16] MEDS ORDERED: VANC1PLA15 IV (14:05)
[2018-05-16] MEDS ORDERED: METF500T2 PO (14:06)
[2018-05-16] MEDS ORDERED: LISI-420 PO (14:07)
[2018-05-16] MEDS ORDERED: PRON INH (14:07)
--- NOTE | 2018-05-16 14:16 | NUR ---
05/16/18 RD FOLLOW UP COMPLETED PLEASE REFER TO NUTRITION ASSESSMENT UNDER CARE ACTIVITY FOR ESTIMATED NUTRITIONAL NEEDS. RD RECOMMENDATIONS: 1. CONTINUE NG TUBE VITAL AT 50 ML/HR. 2. RECOMMEND MECHANICALLY SOFT TEXTURE CARDIAC AND CCHO [address] WILL F/U 2-3 DAYS, HIGH RISK. ZEKE CHEATH[address] RD
--- NOTE | 2018-05-16 14:37 | NUR ---
1400 DR MCCOY ON UNIT AND STATED SHE HAS SPOKE TO PT ABOUT SNF AND HE IS IN AGREEMENT. INFORMED HER THAT [facility] HAS A BED AND ACCEPTED PT FOR ADMISSION. CALL PLACED TO ALFONZO CEJA AT [facility]. 1425 CALL TO [facility] AND SPOKE TO KHUSHI AND SHE PROVIDED TRACKING #[id number] FOR [facility] AND FOR TRANSPORT. CALLED [facility] AND SPOKE WITH JOSTIN AND PT CAN GO TO ROOM 31A UNDER DR ODONNELL AND CALL REPORT TO [phone]. REQUEST PT BE SENT AFTER 1700. ADRIANA CHARGE NURSE MADE AWARE.
--- NOTE | 2018-05-16 14:44 | NUR ---
CALLED [facility] [phone] AND SCHEDULED W/C TRANSPORT WITH O2 WITH SCHEDULED W[facility] CENTER CONSULTANT TIME 1700 PER [employer].
--- NOTE | 2018-05-16 15:30 | NUR ---
REPORT CALLED TO NANCY AT [facility] BY NURSE WRIGHT. AWAITING [facility]SPORT CABLE REPAIRER AT 1700
[2018-05-16 16:00] VITALS: BP 136/65
--- NOTE | 2018-05-16 17:15 | NUR ---
[facility] TRANSPORT TO BEDSIDE, PT TO [facility] NOW.
--- NOTE | 2018-05-16 17:20 | NUR ---
PER PT'S REQUEST, FAMILY CALLED AT [phone], PT'S FATHER ABIODUN WAS NOTIFIED OF PT'S TRANSFER TO [facility].
[2018-05-16] MEDS ORDERED: VANCOMYCIN 1,250 MG in DEXTROSE 5% 250 ML IV SCH (21:00)
[2018-05-17] MEDS ORDERED: methylPREDNISolone SS 125 MG/2 ML VIAL IVP ONE (19:00)
== END 2018-05-16 17:20 | DRG 870 ==
LOC: MED 21:35 → MIC 05-05 05:44 → MTU 05-13 15:48
PROVIDERS: ADMIT Internal Medicine Pulmonary Disease; ATTEND Internal Medicine Pulmonary Disease
PROC: 5A09357 Assistance with Respiratory Ventilation, Less than 24 Consecutive Hours, Continuous Positive Airway Pressure (ICD-10-PCS; 2018-05-04)
PROC: 0BH17EZ Insertion of Endotracheal Airway into Trachea, Via Natural or Artificial Opening (ICD-10-PCS; 2018-05-04)
PROC: 5A1955Z Respiratory Ventilation, Greater than 96 Consecutive Hours (ICD-10-PCS; principal; 2018-05-05)
PROC: 0W993ZZ Drainage of Right Pleural Cavity, Percutaneous Approach (ICD-10-PCS; 2018-05-05)
PROC: 5A09357 Assistance with Respiratory Ventilation, Less than 24 Consecutive Hours, Continuous Positive Airway Pressure (ICD-10-PCS; 2018-05-09)
DX: A41.9 Sepsis, unspecified organism (principal); J18.9 Pneumonia, unspecified organism; J96.01 Acute respiratory failure with hypoxia; J96.02 Acute respiratory failure with hypercapnia; R65.21 Severe sepsis with septic shock; N17.9 Acute kidney failure, unspecified; K56.7 Ileus, unspecified; E11.9 Type 2 diabetes mellitus without complications; E87.5 Hyperkalemia; F20.9 Schizophrenia, unspecified; I11.0 Hypertensive heart disease with heart failure; I50.9 Heart failure, unspecified; R13.10 Dysphagia, unspecified; R79.1 Abnormal coagulation profile; E83.42 Hypomagnesemia; S81.802A Unspecified open wound, left lower leg, initial encounter; X58.XXXA Exposure to other specified factors, initial encounter; Y93.89 Activity, other specified; Z59.0 Homelessness; Z88.1 Allergy status to other antibiotic agents; Z88.8 Allergy status to other drugs, medicaments and biological substances; Y92.89 Other specified places as the place of occurrence of the external cause; Y99.8 Other external cause status
CPT/HCPCS: 31500; 36415; 36600; 51702; 71045; 71275; 74018; 76604; 76700; 76942; 80048; 80053; 80202; 81001; 82550; 82803; 82945; 82948; 83036; 83605; 83735; 83880; 84100; 84132; 84157; 84484; 85025; 85379; 85610; 85730; 87040; 87070; 87075; 87081; 87086; 87186; 87205; 89051; 92526; 92610; 93005; 93970; 94003; 94640; 94660; 96361; 96365; 96375; 96376; 97110; 97116; 97530; 99291; A6248; C9113; J0330; J0461; J1200; J1450; J1644; J1815; J1940; J1956; J2001; J2060; J2405; J2543; J2704; J2765; J2930; J3370; J3490; J7030; J7060; J7613; J7644; P9046; Q0092; Q9967

== ENCOUNTER 2019-01-02 01:35 | Emergency (ER) | payer OTHER ==
[~2019-01-02] VITALS: Ht 175.3 cm; Wt 73.5 kg
[~2019-01-02 01:35] MED LIST: FURO-570 PO; LISI-420 PO; METF500T2 PO; PRON INH; VANC1PLA15 IV
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
[2019-01-02 01:48] VITALS: BP 135/86
[2019-01-02 03:16] VITALS: BP 135/86
--- NOTE | 2019-01-02 03:16 | NUR ---
Patient discharged with v/s stable. Written and verbal after care instructions given and explained. Patient alert, oriented and verbalized understanding of instructions. Ambulatory with steady gait. All questions addressed prior to discharge. ID band removed. Patient advised to follow up with PMD. Rx of CLINDAMYCIN given. Patient educated on indication of medication including possible reaction and side effects. Opportunity to ask questions provided and answered.
== END 2019-01-02 03:16 | disposition home or self-care (01) ==
LOC: MED 01:35
DX: K04.7 Periapical abscess without sinus (principal); E11.9 Type 2 diabetes mellitus without complications; Z79.84 Long term (current) use of oral hypoglycemic drugs; Z79.899 Other long term (current) drug therapy; Z88.1 Allergy status to other antibiotic agents; Z88.8 Allergy status to other drugs, medicaments and biological substances
CPT/HCPCS: 99283

== ENCOUNTER 2020-07-04 14:56 | Emergency (ER) | payer OTHER ==
[~2020-07-04] VITALS: Ht 162.6 cm; Wt 63.5 kg
--- NOTE | 2020-07-04 15:04 | NUR ---
PT AMBULATED TO BED 9, STEADY GAIT.
[2020-07-04 15:05] VITALS: BP 143/91
--- NOTE | 2020-07-04 15:12 | NUR ---
54 Y/M PRESENTS TO ED C C/O COUGH, FEVER,HEADACHE X 3 DAYS. PT ALSO REPORTS ONGOING FATIGUE. PT REPORTS NONPRODUCTIVE COUGH. MED HX: DM
--- NOTE | 2020-07-04 15:19 | NUR ---
VANESSA GORMAN AT BEDSIDE.
[2020-07-04] MEDS ORDERED: NACL 0.45% 1,000 ML IV ONE (15:25)
--- NOTE | 2020-07-04 15:31 | NUR ---
XR AT BEDSIDE.
--- NOTE | 2020-07-04 15:37 | NUR ---
stat labs drawn and given to phleb
--- NOTE | 2020-07-04 15:41 | NUR ---
pt unable to void, urinal at bedside.
[2020-07-04] MEDS ORDERED: IBUPROFEN 600 MG TAB PO ONE (15:45)
[2020-07-04 15:52] LABS: BASOPHILS % (AUTO) 0.5 % (0.0-2.0); EOSINOPHILS % (AUTO) 0.1 % (0.0-4.0); HEMATOCRIT 35.5 % (36-52); HEMOGLOBIN 12.1 g/dL (12.0-18.0); LYMPHOCYTES # (AUTO) 1.3 K/uL (2.0-11.5); LYMPHOCYTES % (AUTO) 24.2 % (20.5-51.1); MEAN CORPUSCULAR HEMOGLOBIN 31 pg (27-31); MEAN CORPUSCULAR HGB CONC 34 g/dL (33-37); MEAN CORPUSCULAR VOLUME 92.2 fL (80-94); MONOCYTES # (AUTO) 0.4 K/uL (0.8-1.0); MONOCYTES % (AUTO) 8.5 % (1.7-9.3); NEUTROPHILS # (AUTO) 3.5 K/uL (1.8-7.7); NEUTROPHILS % (AUTO) 66.7 % (42.2-75.2); PLATELET COUNT (AUTO) 410 K/uL (140-450); RED BLOOD CELL COUNT(AUTO) 3.85 MIL/uL (4.20-6.10); RED CELL DISTRIBUTION WIDTH 14.3 % (11.6-13.7); WHITE BLOOD COUNT (AUTO) 5.2 K/uL (4.8-10.8)
[2020-07-04 16:08] LABS: ALBUMIN 3.9 g/dL (3.4-5.0); ANION GAP 16.1 (8-16); CARBON DIOXIDE 26.1 mmol/L (21-32); CREATININE 1.2 mg/dL (0.6-1.3); POTASSIUM 3.2 mmol/L (3.5-5.1); TOTAL BILIRUBIN 0.8 mg/dL (0.0-1.0)
--- NOTE | 2020-07-04 16:21 | NUR ---
PT IVF COMPLETE AND STILL UNABLE TO VOID.
[2020-07-04 16:46] VITALS: BP 143/91
--- NOTE | 2020-07-04 16:47 | NUR ---
Patient discharged with v/s stable. Written and verbal after care instructions given and explained. Patient alert, oriented and verbalized understanding of instructions. Ambulatory with steady gait. All questions addressed prior to discharge. ID band removed. Patient advised to follow up with PMD. Rx of MOTRIN, PROMETHAZINE, AND TYLENOL given. Patient educated on indication of medication including possible reaction and side effects. Opportunity to ask questions provided and answered. PT DC WITH CLOTHING APPROPRIATE FOR WEATHER, PT GIVEN HOMELESS MEAL PACKET, AND A LIST OF SHELTERS.
--- NOTE | 2020-07-05 17:13 | NUR ---
CONFIRMED WITH RN END TIME OF NORMAL SALINE 3571 07/04/20
== END 2020-07-04 16:47 | disposition home or self-care (01) ==
LOC: MED 14:56
DX: R50.9 Fever, unspecified (principal); R05 Cough; E11.9 Type 2 diabetes mellitus without complications; F20.9 Schizophrenia, unspecified; Z20.828 Contact with and (suspected) exposure to other viral communicable diseases
CPT/HCPCS: 71045; 80053; 85025; 96360; 99284; J7030; Q0092; U0003